=== PATIENT | female | born 1955 | race Caucasian/White ===

== ENCOUNTER → 2022-02-02 09:06 | Outpatient (BNVA) | payer MEDICAID, SELFPAY | PROVIDERS: Visit Provider Nurse Practitioner Psychiatric/Mental Health | DX: Z51.81 Encounter for therapeutic drug level monitoring (principal); F10.20 Alcohol dependence, uncomplicated; R41.9 Unspecified symptoms and signs involving cognitive functions and awareness | CPT/HCPCS: 80305; 99212 ==

== ENCOUNTER 2022-05-16 12:15 | Outpatient (REF) | payer MEDICARE, MEDICAID, SELFPAY ==
--- NOTE | ~2022-05-16 | MM_ITS ---
EXAMINATION: MM SCREENING DIGITAL BREAST TOMOSYNTHESIS, BILATERAL CLINICAL INFORMATION: Screening. Asymptomatic. The lifetime risk of breast cancer based on the Tyrer-Cuzick Model is 5%. COMPARISON: Mammography: 01/08/2020, 11/06/2018, 06/07/2016 TECHNIQUE: Digital breast tomosynthesis is performed in both the craniocaudal and mediolateral oblique views along with computer-aided detection (CAD). Synthesized 2D images are generated from the tomosynthesis. FINDINGS: There are scattered areas of fibroglandular density (ACR BI-RADS breast composition Category b). There are no significant masses, abnormal calcifications, or other abnormalities. There is some fine deodorant artifact overlying skin upper left axilla. MM/MM tomosynthesis screening BI IMPRESSION: No mammographic evidence of malignancy. ASSESSMENT: BI-RADS 2: Benign RECOMMENDATION: Routine annual mammography screening. This patient's information was entered into a reminder system with a target due date for their next mammogram.
== END 2022-05-16 12:16 | disposition home or self-care (01) ==
LOC: HO.MAMMO 12:15
PROVIDERS: PCP Student in an Organized Health Care Education/Training Program; Visit Provider Emergency Medicine
DX: Z12.31 Encounter for screening mammogram for malignant neoplasm of breast (principal)
CPT/HCPCS: 77063; 77067

== ENCOUNTER → 2023-06-26 13:45 | Outpatient (BNV) | payer MEDICARE, MEDICAID, SELFPAY | PROVIDERS: PCP Student in an Organized Health Care Education/Training Program; Visit Provider Radiology Diagnostic Radiology | DX: Z12.31 Encounter for screening mammogram for malignant neoplasm of breast (principal) | CPT/HCPCS: 77063; 77067 ==

== ENCOUNTER 2023-06-26 13:47 | Outpatient (REF) | payer MEDICARE, MEDICAID, SELFPAY ==
--- NOTE | ~2023-06-26 | MM_ITS ---
EXAMINATION: MM SCREENING DIGITAL BREAST TOMOSYNTHESIS, BILATERAL CLINICAL INFORMATION: Screening. Asymptomatic. The lifetime risk of breast cancer based on the Tyrer-Cuzick Model is 7%. COMPARISON: Mammography: 05/16/2022, and dating back to 2012. TECHNIQUE: Digital breast tomosynthesis is performed in both the craniocaudal and mediolateral oblique views along with computer-aided detection (CAD). Synthesized 2D images are generated from the tomosynthesis. FINDINGS: The breasts are heterogeneously dense, which may obscure small masses (ACR BI-RADS breast composition Category c). Patient appears to have lost weight in the interim from 05/16/2022. Breast parenchyma is increasing in density mildly bilaterally. There are no suspicious masses, suspicious grouped calcifications, or areas of architectural distortion. The parenchymal pattern is stable from prior exams. MM/MM tomosynthesis screening BI IMPRESSION: No mammographic evidence of malignancy. ASSESSMENT: BI-RADS BI-RADS 1 - Negative RECOMMENDATION: Routine annual mammography screening. 1 year F/U This examination should not preclude the clinical evaluation of a suspicious palpable abnormality. This patient's information was entered into a reminder system with a target due date for their next mammogram.
== END 2023-06-26 13:48 | disposition home or self-care (01) ==
LOC: HO.MAMMO 13:47
PROVIDERS: PCP Student in an Organized Health Care Education/Training Program; Visit Provider Student in an Organized Health Care Education/Training Program
DX: Z12.31 Encounter for screening mammogram for malignant neoplasm of breast (principal)
CPT/HCPCS: 77063; 77067

== ENCOUNTER 2023-06-28 10:29 | Outpatient (REF) | payer MEDICARE, MEDICAID, SELFPAY ==
[2023-06-28 15:54] LABS: Anion Gap 15 (12-20); Blood Urea Nitrogen 11 mg/dL (9-16); Calcium 9.5 mg/dL (8.4-10.2); Carbon Dioxide 26 mmol/L (22-29); Chloride 104 mmol/L (96-108); Estimated Glomerular Filt Rate > 60; Glucose Fasting 97 mg/dL (60-99); Potassium 4.3 mmol/L (3.3-5.1); Sodium 141 mmol/L (135-145)
[2023-06-28 16:57] LABS: Thyroid Stimulating Hormone 1.77 uIU/mL (0.32-4.0)
== END 2023-06-28 10:30 | disposition home or self-care (01) ==
LOC: HO.CHCLDS 10:29
PROVIDERS: Visit Provider Student in an Organized Health Care Education/Training Program
DX: F10.20 Alcohol dependence, uncomplicated (principal); E03.9 Hypothyroidism, unspecified
CPT/HCPCS: 36415; 80048; 84443

== ENCOUNTER 2023-12-07 10:01 | Outpatient (REF) | payer MEDICARE, MEDICAID, SELFPAY ==
[2023-12-07 15:21] LABS: Anion Gap 14 (12-20); Blood Urea Nitrogen 9 mg/dL (9-16); Calcium 9.2 mg/dL (8.4-10.2); Carbon Dioxide 26 mmol/L (22-29); Chloride 104 mmol/L (96-108); Estimated Glomerular Filt Rate > 60; Glucose Random 74 mg/dL (60-115); Potassium 3.6 mmol/L (3.3-5.1); Sodium 140 mmol/L (135-145)
[2023-12-07 15:37] LABS: Thyroid Stimulating Hormone 0.94 uIU/mL (0.32-4.0)
== END 2023-12-07 10:02 | disposition home or self-care (01) ==
LOC: HO.CHCLDS 10:01
PROVIDERS: Visit Provider Student in an Organized Health Care Education/Training Program
DX: E03.9 Hypothyroidism, unspecified (principal); E87.1 Hypo-osmolality and hyponatremia
CPT/HCPCS: 36415; 80048; 84443

== ENCOUNTER 2024-09-08 12:20 | Outpatient (REF) | payer MEDICARE, MEDICAID, SELFPAY ==
[2024-09-08 13:23] LABS: MANUAL DIFF FLAG NO
[2024-09-08 13:36] LABS: Basophils Absolute Auto 0.1 X10*3/uL (0.0-0.2); Basophils Percent Auto 0.9 % (0-2); Eosinophils Absolute Auto 0.1 X10*3/uL (0.0-0.4); Hemoglobin 11.1 g/dl (12.0-16.0); Imm Gran Abs Auto 0.02 X10*3/uL (0.00-0.03); Imm Gran Pct Auto 0.3 % (0.0-0.4); Lymphocytes Absolute Auto 3.1 X10*3/uL (1.2-4.9); Lymphocytes Percent Auto 39.1 % (20-40); Mean Corpuscular HGB Conc 31.7 g/dl (31.0-35.0); Mean Corpuscular Volume 91.4 fL (80.0-98.0); Mean Platelet Volume 10.3 fL (9.4-12.3); Monocytes Absolute Auto 0.5 X10*3/uL (0.1-1.2); Monocytes Percent Auto 6.1 % (2-11); Neutrophils Absolute Auto 4.2 x10*3/uL (2.0-8.3); Neutrophils Percent Auto 52.6 % (45-73); Platelet Count 343 X10*3/uL (160-400); Red Blood Count 3.83 X10*6/uL (4.20-5.50); Red Cell Distribution Width 12.8 % (11.0-16.0)
[2024-09-08 14:33] LABS: Alanine Aminotransferase 11 U/L (0-31); Albumin Level 4.2 g/dL (3.5-5.0); Alkaline Phosphatase 64 U/L (39-117); Anion Gap 10 (12-20); Aspartate Amino Transferase 25 U/L (5-31); Bilirubin Total 0.7 mg/dL (0.0-1.0); Blood Urea Nitrogen 16 mg/dL (9-16); Calcium 9.2 mg/dL (8.4-10.2); Carbon Dioxide 28 mmol/L (22-29); Chloride 108 mmol/L (96-108); Cholesterol 196 mg/dL (<200); Estimated Glomerular Filt Rate > 60; Glucose Random 90 mg/dL (60-115); HDL Cholesterol 60 mg/dL (>40); LDL Cholesterol Calculated 123 mg/dL (<100); Potassium 3.9 mmol/L (3.3-5.1); Sodium 142 mmol/L (135-145); Total Protein 6.8 g/dL (6.5-8.0); Triglycerides 65 mg/dL (<150)
[2024-09-08 14:48] LABS: Thyroid Stimulating Hormone 1.74 uIU/mL (0.32-4.0)
== END 2024-09-08 12:21 | disposition home or self-care (01) ==
LOC: HO.HHCL 12:20
PROVIDERS: Visit Provider Registered Nurse
DX: R19.7 Diarrhea, unspecified (principal); E03.9 Hypothyroidism, unspecified; F10.20 Alcohol dependence, uncomplicated
CPT/HCPCS: 36415; 80053; 80061; 84443; 85025

== ENCOUNTER 2024-12-02 13:37 | Outpatient (REF) | payer MEDICARE, MEDICAID, SELFPAY ==
--- NOTE | ~2024-12-02 | MM_ITS ---
EXAMINATION: MM SCREENING DIGITAL BREAST TOMOSYNTHESIS, BILATERAL CLINICAL INFORMATION: Screening. Asymptomatic. COMPARISON: Mammography: Comparison is made with available priors TECHNIQUE: Digital breast mammography with tomosynthesis is performed in both the craniocaudal and mediolateral oblique views along with computer-aided detection (CAD). FINDINGS: The breasts are heterogeneously dense, which may obscure small masses (ACR BI-RADS breast composition Category c). There are no significant masses, abnormal calcifications, or other abnormalities. MM/MM tomosynthesis screening BI IMPRESSION: No mammographic evidence of malignancy. ASSESSMENT: BI-RADS BI-RADS 1 - Negative RECOMMENDATION: Routine annual mammography screening. 1 year F/U This examination should not preclude the clinical evaluation of a suspicious palpable abnormality. This patient's information was entered into a reminder system with a target due date for their next mammogram. Electronically signed by: Jacy Howard DO 12/10/2024 01:28 PM VICK[facility]
--- NOTE | ~2024-12-02 | MM_ITS ---
EXAMINATION: Dual-Energy X-ray Absorptiometry - Bone Density Study HISTORY: Estrogen deficiency TECHNIQUE: Digital Fuel Dual energy absorptiometry (DEXA) of the lumbar spine, total left hip, and femoral neck was performed. COMPARISON: Comparison is made with the prior examination dated 12/12/2018. FINDINGS: The bone mineral density of the lumbar spine is 1.599 with a T-score of 3.5, and a Z-score of 5.8. This represents a BMD change of -1.1% compared to the prior exam. This is not statistically significant. The bone mineral density of the left total hip is 0.779 with a T-score of -1.8, and a Z-score of 0.0. This represents BMD change of -7.2% compared to the prior exam. This is statistically significant. The bone mineral density of the left femoral neck is 0.835 with a T-score of -1.5, and a Z-score of 0.5. This represents BMD change of 3.5% compared to the prior exam. FRACTURE RISK: The FRAX index suggests a ten year probability of major osteoporotic fracture of 8.0%, and of hip fracture 1.1%. MM/XR DEXA axial skeleton IMPRESSION: Based on bone mineral density, and according to World Health Organization (WHO) criteria, the diagnosis is consistent with osteopenia. All bone density values are in grams per centimeter squared. At this facility, the least significant change in BMD with 95% confidence is 0.022 at the lumbar spine, 0.027 at the hip, and 0.023 at the distal 1/3 radius. Electronically signed by: Lazarus Romo MD 12/03/2024 09:57 AM EST
--- OUTSIDE RECORDS SUMMARY | 2024-12-02 15:55 | XMS_ITS | Clinical Summary ---
Author Organization Unknown Care Team Providers Care Paperboard Machine Operator Name Role Phone AIYANA YU, MELINA Unavailable Unavailable CARMEN CARDOSO, GEE Unavailable Unavailable Payers Payer Name Policy Type Policy Number Effective Date Expira tion Date MEDICAID [facility] [id number] MEDICARE - NGS [place]/DC - PD [id number] Problems Condition Name Condition Details Condition Category Status Onset Date Resolution Date Last Treatment Date Treating Clinician Comments ALCOHOL DEPENDENCE, UNCOMPLICATE D Active 01-17 00:00: 00 Allergies, Adverse Reactions, Alerts Allergy Name Allergy Type Status Severity Reaction(s) Onset Date Inactive Date Treating Clinician Comments NKA Propensity to adverse reactions Active 2023-01 11:52:5 8 Medications Ordered Medication Name Filled Medication Name Start Date Stop Date Current Medication? Ordering Clinician Indication Dosage Frequency Signature (SIG) Comments Components folic acid 1 mg tablet 02-02 00:00: 00 07-14 23:59 :00 No [id number] 1 tablet DAILY 1 tablet DAILY (route: oral) Med Classific ation: Electroly te Balance-N utritiona l Products levetiracet am 500 mg tablet 02-02 00:00: 00 07-14 23:59 :00 No [id number] 1 tablet EVERY 12 HOURS 1 tablet EVERY 12 HOURS (route: oral) Med Classific ation: Central Nervous System Agents magnesium oxide 400 mg (241.3 mg magnesium) tablet 02-02 00:00: 00 07-14 23:59 :00 No [id number] 1 tablet 2 TIMES DAILY 1 tablet 2 TIMES DAILY (route: oral) Med Classific ation: Electroly te Balance-N utritiona l Products Multivitami n 50 Plus tablet 02-02 00:00: 00 07-14 23:59 :00 No [id number] 1 tablet DAILY 1 tablet DAILY (route: oral) Med Classific ation: Electroly te Balance-N utritiona l Products pantoprazol e 40 mg tablet,eloisa yed release 02-02 00:00: 00 07-14 23:59 :00 No [id number] 1 tablet DAILY 1 tablet DAILY (route: oral) Med Classific ation: Gastroint estinal Therapy Agents pyridoxine (vitamin B6) 50 mg tablet 02-02 00:00: 00 07-14 23:59 :00 No [id number] 1 tablet DAILY 1 tablet DAILY (route: oral) Med Classific ation: Electroly te Balance-N utritiona l Products thiamine HCl (vitamin B1) 100 mg tablet 02-02 00:00: 00 07-14 23:59 :00 No [id number] 1 tablet DAILY 1 tablet DAILY (route: oral) Med Classific ation: Electroly te Balance-N utritiona l Products Vitamin D3 25 mcg (1,000 unit) tablet 02-02 00:00: 00 07-14 23:59 :00 No [id number] 1 tablet DAILY 1 tablet DAILY (route: oral) Med Classific ation: Electroly te Balance-N utritiona l Products ESTRACE VAGINAL 1-10 00:00: 00 12-28 00:00 :00 No 0.01 % (0.1 mg/gram ) 0.01 % (0.1 mg/gram) (route: ) Med Classific ation: VAGINAL PRODUCTS Plan of Treatment Planned Activity Planned Date Details Comments Future Scheduled Test SKILLED NU RSE TO EVALUATE PATIENT, IDENTIFY PRIMARY AND CO-MORBID CONDITIONS CODED PER CODING GUIDELINES, AND DEVELOP PATIENT SPECIFIC PLAN OF CARE THAT INCLUDES PATIENT GOAL FOR HOME HEALTH. CLINICAL SUMMARY (SOC) START OF CARE VISIT FOR 67 YEAR OLD SINGLE FEMALE WITH PRISON ADDICTION TO ALCOHOL. SHE HAS BEEN FREQUENTLY HOSPITALIZED WITH AMS AND SHE PRESENTS SLOW SPEAKING. SHE WALKS WITH A STOOP, SAYS SHE HAS NO PAIN ANYWHERE BUT WALKS LIKE A 89 YEAR OLD. SHE IS VERY SLIM, PALE, WEAK. SHE REPORTS STAYING AT BOYFRIEND [employer] FREQU[facility] AND SAYS ALL HER MEDS ARE KEPT AND DOSED BY HIM. SHE REPORTS ATTENDING OCCASIONAL AA MEETINGS, BUT SUSPECT SHE DOES SO TO APPEASE HER BOYFRIEND. SHE DID REMARK SHE HAS NO BLOOD FAMILY LEFT. SHE OWNS HER HOME, (IT WAS HER PARENTS HOME), AND TROUBLES ARE ARISING - GARAGE DOOR WONT SHUT, WASHER DOESNT WORK, ETC. - AN AGING PROPERTY. SHE SHARES THERE ARE A LOT OF MEMORIES IN HER HOUSE AND PLANS TO REHAB IT. SHE WAS HOSPITALIZ[place] [facility] FOR AMS DUE TO ETOH. THIS RN NOT SURE IF PATIENT THINKS SHE HAS A PROBLEM, WHICH MAY DELAY RECOVERY. SN 1W1, 3W4, 2W4, 1W1 FOR ASSESSMENT OF MOOD, COPING, MED PREFILL, SOBRIETY, MED COMPLIANCE. [code = SKILLED NURSE TO EVALUATE PATIENT, IDENTIFY PRIMARY AND CO-MORBID CONDITIONS CODED PER CODING GUIDELINES, AND DEVELOP PATIENT SPECIFIC PLAN OF CARE THAT INCLUDES PATIENT GOAL FOR HOME HEALTH. CLINICAL SUMMARY (SOC) START OF CARE VISIT FOR 67 YEAR OLD SINGLE FEMALE WITH BOOK SOLICITOR ADDICTION TO ALCOHOL. SHE HAS BEEN FREQUENTLY HOSPITALIZED WITH AMS AND SHE PRESENTS SLOW SPEAKING. SHE WALKS WITH A STOOP, SAYS SHE HAS NO PAIN ANYWHERE BUT WALKS LIKE A 89 YEAR OLD. SHE IS VERY SLIM, PALE, WEAK. SHE REPORTS STAYING AT [facility] AND SAYS ALL HER MEDS ARE KEPT AND DOSED BY HIM. SHE REPORTS ATTENDING OCCASIONAL AA MEETINGS, BUT SUSPECT SHE DOES SO TO APPEASE HER BOYFRIEND. SHE DID REMARK SHE HAS NO BLOOD FAMILY LEFT. SHE OWNS HER HOME, (IT WAS HER PARENTS HOME), AND TROUBLES ARE ARISING - GARAGE DOOR WONT SHUT, WASHER DOESNT WORK, ETC. - AN AGING PROPERTY. SHE SHARES THERE ARE A LOT OF MEMORIES IN HER HOUSE AND PLANS TO REHAB IT. SHE WAS HOSPITALIZED [place] [facility] [place]01 FOR AMS DUE TO ETOH. THIS RN NOT SURE IF PATIENT THINKS SHE HAS A PROBLEM, WHICH MAY DELAY RECOVERY. SN 1W1, 3W4, 2W4, 1W1 FOR ASSESSMENT OF MOOD, COPING, MED PREFILL, SOBRIETY, MED COMPLIANCE. ] Future Scheduled Test SKILLED NU RSE TO O/A OF PATIENTS MENTAL/BEHAVIORAL STATUS, ASSESS VITAL SIGNS MONTHLY OR NEEDED, ALLOW 2 PRNS FOR MEDICATION MANAGEMENT. [code = SKILLED NURSE TO O/A OF PATIENTS MENTAL/BEHAVIORAL STATUS, ASSESS VITAL SIGNS MONTHLY OR NEEDED, ALLOW 2 PRNS FOR MEDICATION MANAGEMENT.] Future Scheduled Test SKILLED NU RSE TO PRE-POUR MEDICATION PER MEDICATION LIST WEEKLY. [code = SKILLED NURSE TO PRE-POUR MEDICATION PER MEDICATION LIST WEEKLY.] Future Scheduled Test SKILLED NU RSE FOR O/A AND SKILLED TEACHING RELATED TO MANAGEMENT OF DEPRESSIVE SYMPTOMS AND/OR DEPRESSION SN TO REPORT SIGNIFICANT CHANGE IN DEPRESSIVE SYMPTOMS TO CLINICAL PROVIDER FOR EARLY INTERVENTION. [code = SKILLED NURSE FOR O/A AND SKILLED TEACHING RELATED TO MANAGEMENT OF DEPRESSIVE SYMPTOMS AND/OR DEPRESSION SN TO REPORT SIGNIFICANT CHANGE IN DEPRESSIVE SYMPTOMS TO CLINICAL PROVIDER FOR EARLY INTERVENTION.] Future Scheduled Test SKILLED NU RSE MAY PICKUP AND TRANSPORT MEDICATIONS [code = SKILLED NURSE MAY PICKUP AND TRANSPORT MEDICATIONS] Future Scheduled Test SKILLED NU RSE FOR O/A OF CLIENT'S KNOWLEDGE OF DISEASE PROCESS AND MANAGEMENT. MAY TEACH DISEASE MANAGEMENT TECHNIQUES DESIGNED TO INCREASE CLIENT'S FUNCTIONAL STATUS. [code = SKILLED NURSE FOR O/A OF CLIENT'S KNOWLEDGE OF DISEASE PROCESS AND MANAGEMENT. MAY TEACH DISEASE MANAGEMENT TECHNIQUES DESIGNED TO INCREASE CLIENT'S FUNCTIONAL STATUS.] Future Scheduled Test SKILLED NU RSE FOR O/A OF CLIENT'S AVAILABLE SUPPORT SYSTEMS. SN TO ASSIST CLIENT IN IDENTIFYING AND ACCESSING SUPPORT SYSTEMS FOR ASSISTANCES [code = SKILLED NURSE FOR O/A OF CLIENT'S AVAILABLE SUPPORT SYSTEMS. SN TO ASSIST CLIENT IN IDENTIFYING AND ACCESSING SUPPORT SYSTEMS FOR ASSISTANCES] Future Scheduled Test SKILLED NU RSE FOR O/A OF GENERAL HEALTH STATUS OF PAIN, CARDIAC, RESPIRATORY, GASTROINTESTINAL, GENITOURINARY, SKIN, NEUROLOGIC, ENDOCRINE SYSTEMS TO IDENTIFY CHANGES ASSOCIATED WITH EXACERBATION FOR EARLY INTERVENTION OF COMPLICATIONS WEEKLY AND PRN [code = SKILLED NURSE FOR O/A OF GENERAL HEALTH STATUS OF PAIN, CARDIAC, RESPIRATORY, GASTROINTESTINAL, GENITOURINARY, SKIN, NEUROLOGIC, ENDOCRINE SYSTEMS TO IDENTIFY CHANGES ASSOCIATED WITH EXACERBATION FOR EARLY INTERVENTION OF COMPLICATIONS WEEKLY AND PRN] Future Scheduled Test SKILLED NU RSE TO REVIEW PATIENT MEDICATIONS. INSTRUCT PATIENT/CAREGIVER ON MONITORING OF EFFECTIVENESS, ADVERSE DRUG REACTIONS, SIDE EFFECTS OF ALL MEDICATIONS (PRESCRIPTION/-OTC), AND HOW AND WHEN TO REPORT PROBLEMS. [code = SKILLED NURSE TO REVIEW PATIENT MEDICATIONS. INSTRUCT PATIENT/CAREGIVER ON MONITORING OF EFFECTIVENESS, ADVERSE DRUG REACTIONS, SIDE EFFECTS OF ALL MEDICATIONS (PRESCRIPTION/-OTC), AND HOW AND WHEN TO REPORT PROBLEMS. ] Future Scheduled Test SKILLED NU RSE FOR OBSERVATION AND ASSESSMENT OF PATIENTS PAIN LEVEL AND EFFECTIVENESS OF PAIN MANAGEMENT REGIMEN. SKILLED NURSE TO INSTRUCT PATIENT/CAREGIVER REGARDING PHARMACOLOGIC AND NON-PHARMACOLOGIC PAIN CONTROL MEASURES. SKILLED NURSE TO REPORT TO PHYSICIAN IF PAIN IS UNCONTROLLED WITH CURRENT PAIN MANAGEMENT REGIMEN. [code = SKILLED NURSE FOR OBSERVATION AND ASSESSMENT OF PATIENTS PAIN LEVEL AND EFFECTIVENESS OF PAIN MANAGEMENT REGIMEN. SKILLED NURSE TO INSTRUCT PATIENT/CAREGIVER REGARDING PHARMACOLOGIC AND NON-PHARMACOLOGIC PAIN CONTROL MEASURES. SKILLED NURSE TO REPORT TO PHYSICIAN IF PAIN IS UNCONTROLLED WITH CURRENT PAIN MANAGEMENT REGIMEN.] Future Scheduled Test SKILLED NU RSE TO PROVIDE INSTRUCTION ON FALL PREVENTION MEASURES. [code = SKILLED NURSE TO PROVIDE INSTRUCTION ON FALL PREVENTION MEASURES.] Future Scheduled Test PATIENT MA Y HAVE ONE SET OF EMERGENCY MEDICATION NOT TO BE PRE-POURED ANY SOONER THAN 24 HOURS BEFORE SEVERE INCLEMENT WEATHER AND FOLLOWING SKILLED NURSE EVALUATION OF PATIENT SAFETY. [code = PATIENT MAY HAVE ONE SET OF EMERGENCY MEDICATION NOT TO BE PRE-POURED ANY SOONER THAN 24 HOURS BEFORE SEVERE INCLEMENT WEATHER AND FOLLOWING SKILLED NURSE EVALUATION OF PATIENT SAFETY.] Goal Patient Goal - TO KEEP EVERYONE OFF MY BACK Goal Provider Goal - A PLAN OF CARE WILL BE ESTABLISHED THAT MEETS PATIENT'S RESIDENTIAL NEEDS AND INCLUDES PATIENT GOAL FOR HOME HEALTH. Goal Provider Goal - ALTERED MENTAL/BEHAVIORAL STATUS WILL BE IDENTIFIED PROMPTLY AND INTERVENTION INITIATED QUICKLY TO MINIMIZE ASSOCIATED RISKS Goal Provider Goal - PATIENT WILL COMPLY WITH MEDICATION WHEN SKILLED NURSE PRE-POURS MEDICATION. Goal Provider Goal - PATIENT WILL REMAIN SAFE WITHOUT DECOMPENSATION IN DEPRESSIVE CONDITION, WHILE MAINTAINING OPTIMAL LEVEL OF MENTAL HEALTH AND WELL BEING. Goal Provider Goal - Goal Provider Goal - PATIENT WILL DEMONSTRATE IMPROVED MANAGEMENT SKILLS IN DEALING WITH CURRENT DISEASE PROCESS BY THE END OF THE CERTIFICATION PERIOD. Goal Provider Goal - PATIENT WILL VERBALIZE AND ACKNOWLEDGE AVAILABLE SUPPORT SYSTEMS AND DEMONSTRATE WILLINGNESS TO UTILIZE SUPPORT ASSISTANCE WITHIN THIS CERFITICATION PERIOD. Goal Provider Goal - CHANGE IN GENERAL HEALTH STATUS WILL BE IDENTIFIED AND REPORTED TO PHYSICIAN FOR PROMPT INTERVENTION TO MINIMIZE ASSOCIATED RISKS THROUGHOUT CERTIFICATION PERIOD. Goal Provider Goal - PATIENT/CAREGIVER WILL VERBALIZE UNDERSTANDING OF EDUCATION PROVIDED ON MEDICATIONS BY THE END OF THE CERTIFICATION PERIOD. Goal Provider Goal - INCREASED PAIN OR INEFFECTIVE PAIN CONTROL MEASURES WILL BE IDENTIFIED AND PROMPTLY REPORTED TO PHYSICIAN THROUGHOUT THE CERTIFICATION PERIOD. Goal Provider Goal - PATIENT/CAREGIVER DEMONSTRATES UNDERSTANDING OF FALL PREVENTION MEASURES BY THE END OF THE CERTIFICATION PERIOD. Reason for Visit INDEPENDENT IN THE COMMUNITY Encounters Start Date/Time End Date/Time Encounter Type Admission Type Attending [facility] Care Department Encounter ID Discharge Date Discharge Status Discharge Condition Discharge Reason Percent Goals Met 2023-02-02 00:00:00 2023-02-27 00:00:00 Outpatient READMISSIO N ROSS, GEE [facility] [id number] 1887-04-11 00:00:00 DISCHARGE TO HOME OR SELF CARE INDEPENDEN T IN THE COMMUNITY NON COMPLIANT WITH PLAN OF TREATMENT 33.33
== END 2024-12-02 13:38 | disposition home or self-care (01) ==
LOC: HO.MAMMO 13:37
PROVIDERS: PCP Family Medicine; Visit Provider Registered Nurse
DX: Z12.31 Encounter for screening mammogram for malignant neoplasm of breast (principal); Z78.0 Asymptomatic menopausal state; Z91.89 Other specified personal risk factors, not elsewhere classified
CPT/HCPCS: 77063; 77067; 77080

== ENCOUNTER → 2024-12-02 14:00 | Outpatient (BNV) | payer MEDICARE, MEDICAID, SELFPAY | PROVIDERS: PCP Family Medicine; Visit Provider Radiology Diagnostic Radiology | DX: Z12.31 Encounter for screening mammogram for malignant neoplasm of breast (principal) | CPT/HCPCS: 77063; 77067; 77080 ==

== ENCOUNTER 2025-02-03 13:32 | Outpatient (AMB) | payer MEDICARE, MEDICAID, SELFPAY ==
--- NOTE | 2025-02-03 14:16 | AM.OFFWIN_ITS ---
Intake Vital Signs 02/03/25 14:17 Height 5 ft 2 in Weight 108 lb 4 oz BMI 19.8 BP 118/66 Blood Pressure Location Lt brachial Position Sitting Pulse 84 Pulse Source Pulse Oximeter Temp 98.0 F Temp Source Oral Pulse Oximetry (%) 97 Oxygen Delivery Method Room Air Intake Visit Reasons: EP pain on LT tigh Intake Note: Pt presents to the office today for c/o left thigh pain x1.5 weeks. Pt denies any injury to her leg but states she does a lot of walking. Patient Tobacco Use Status: Never used Tobacco Allergies No Known Allergies [No Known Allergies*] Allergy (Verified 02/03/25 14:19) HPI HPI Comments History of Present Illness Details This is a 69-year-old female with a past medical history of insomnia presenting for evaluation of left distal thigh pain that she has had for the past 2 weeks. Patient denies any injury or trauma preceding the onset of her symptoms. Patient also denies taking any new medications. She has been taking Advil and Tylenol intermittently without relief of her symptoms. Patient states that her leg will occasionally be more uncomfortable with ambulation. [facility] Social History Patient Tobacco Use Status: Never used Tobacco Review of Systems Const All systems reviewed & are unremarkable except as noted in HPI and below Eyes Reports no additional complaints ENT Reports no additional complaints Card Reports no additional complaints Resp Reports no additional complaints GI Reports no additional complaints Reports no additional complaints Musc Reports other (left thigh pain) Skin/Breast Details: No skin changes reported Reports system reviewed and no additional complaints, except as documented Neuro Reports no additional complaints Psych Reports no additional complaints Endo Reports no additional complaints Wesley/Lymph Reports no additional complaints Aller/Immun Reports no additional complaints Physical Exam Vital Signs: Last Vital Signs Temp 98.0 F 02/03/25 14:17 Pulse 84 02/03/25 14:17 BP 118/66 02/03/25 14:17 Pulse Ox 97 02/03/25 14:17 Oxygen Delivery Method Room Air 02/03/25 14:17 BMI result Body Mass Index 19.8 Const General: cooperative, healthy appearing, comfortable and no acute distress Nutritional Appearance: average body habitus Orientation/consciousness: patient oriented x3 Limitations: no limitations Skin Other: No erythema, rashes or other cutaneous findings noted on the left lower extremity Neuro General: patient oriented x3 Extrem Left lower extremity: normal to inspection, full ROM, no joint enlargement and hip/thigh (pain to palpation distal lateral left thigh, ROM left knee intact) Details: normal to inspection, tenderness and normal ROM; no swelling, no lacerations, no ecchymosis, no crepitus, no foreign bodies and no unusual warmth; no cyanosis and no edema Psych Appearance: grossly normal Mental Status: mental status grossly normal Insight: Good insight present (Psych) Judgement: Good judgement present (Psych) Assessment & Plan Assessment & Plan (1) Left thigh pain: Comment: There is no evidence of an acute cellulitis, no crepitus, no evidence of a retained foreign body and examination is consistent with muscular pain. Code(s): M79.652 - Pain in left thigh Plan: Naprosyn b.i.d. times 7-10 days. Patient will follow up with her primary care provider in 2 weeks if her symptoms persist. Medications: New naproxen (Naprosyn) 500 mg PO BID 20 tabs 0RF Coding Level of Care Code Est Pt Level 3 (77955) Diagnoses Left thigh pain M79.652 Time Spent (min) 20
[2025-02-03 14:17] VITALS: BP 118/66; PULSE 84; TEMP 36.7; O2SAT 97; BMI 19.8
--- OUTSIDE RECORDS SUMMARY | 2025-02-03 15:59 | XMS_ITS | Encounter Summary ---
Author Organization [employer] Address [address] [place] [address] Care Team Providers Care Mate Fourth Name Role Phone Kita Figueroa MD Primary Care Provider [phone] Kal Tong MD Unavailable [phone] [facility] Primary Care Provider [phone] Melly Heard MD Primary Care Provider [phone] Reason for Visit * Reason Onset Date Comments Call Back Request 11/13/2023 Encounter Details Date Type Department Care Team ([facility] st Contact Info) Description 11/13/2023 Telephone [facility] P[facility]S [address] [place], [place] [id number] Kita Figueroa MD [address] [place] [address] Call Back Request Social History Tobacco Use Types Packs/Day Years Used Date Smoking Tobacco: Never Smokeless Tobacco: Never Alcohol Use Standard Drinks/Week Comments Yes 0 (1 standard drink = 0.6 oz pur e alcohol) Alcohol Answer Date Recorded How often do you have a drink containing alcohol ? 4 12/08/2022 How many drinks containing a lcohol do you have on a typical day when you are drinking? 3 12/08/2022 How often do you have six or more drinks on one occasion? 3 12/08/2022 Housing Stability Answer Date Recorded What is your housing situation today? I have erendira rider 09/17/[address] you li ve. Do you have problems with any of the following? None of the above 09/17/2023 Food Insecurity Answer Date Recorded Within the past 12 months, y ou worried that your food would run out before you got money to buy more: Never True 09/17/2023 Within the past 12 months,th e food you bought just didn't last and you didn't have enough money to get more: Never True Transportation Answer Date Recorded In the past 12 months, has l ack of transportation kept you from medical appts, meetings, work or from getting things needed for daily living? No 09/17/2023 Utilities Answer Date Recorded In the past 12 months, has t he [employer], gas, oil or water [employer] threatened to shut off services in your home? No 09/17/2023 Comments Unknown Sex and Gender Information Value Date Recorded Sex Assigned at Female 09/18/2022 10:17 AM EDT Legal Sex Female 10:17 AM EDT Gender Identity Female 09/18/2022 10:17 AM EDT Sexual Orientation Straight 09/18/2022 10 :17 AM EDT documented as of this encounter Miscellaneous Notes * Telephone Encounter - Leonela Bustamante RN - 11/14/2023 4:29 PM EST Placed call to Evie at [facility] regarding message below. Evie informed of PCP concerns. [facility] will make a note of this and f/u as needed. * Telephone Encounter - Kita Figueroa MD - 11/13/2023 9:23 PM EST Pt is a alcoholic and is non complaint with meds and all medical advices * Telephone Encounter - Juan Salcedo - 11/13/2023 3:40 PM EST Tc from Evie working with [facility] calling [facility] about any medical concerns pcp may have and if pt is medically compliant.Please contact Evie at [phone] ebp [phone]. documented in this encounter Plan of Treatment Not on file documented as of this encounter Visit Diagnoses Not on filedocumented in this encounter Care Teams Mate Fourth Relationship Specialty Start Date End Date Kita Fgiueroa MD [address] [place] [address] PCP - General Family Medicine 11/04/12 09/07/24 [facility] [address] [place] [address] PCP - General Family Medicine 09/08/24 09/08/24 Melly Heard MD [address] [place] [address] PCP - General Family Medicine 09/09/24 Kal Tong MD [address] [id number] Nephrology 06/12/22 documented as of this encounter
--- OUTSIDE RECORDS SUMMARY | 2025-02-03 15:59 | XMS_ITS | Encounter Summary ---
Author Organization [employer] Address [address] [facility] 7t [place] [address] Care Team Providers Care Traverse Rod Assembler Name Role Phone Kita Figueroa MD Primary Care Provider [phone] Kal Tong MD Unavailable [phone] [facility] Primary Care Provider [phone] Melly Heard MD Primary Care Provider [phone] Encounter Details Date Type Department Care Team (Late st Contact Info) Description 07/11/2024 Orders Only [facility] [address] [place] [address] Provider, MD Vanessa Social History Tobacco Use Types Packs/Day Years [...] the past 12 months, has t he electric, gas, oil or water company threatened to shut off services in your home? No 09/17/2023 Comments Unknown Sex and Gender Information Value Date Recorded Sex Assigned at Female 09/18/2022 10:17 AM EDT Legal Sex Female 10:17 AM EDT Gender Identity Female 09/18/2022 10:17 AM EDT Sexual Orientation Straight 09/18/2022 10 :17 AM EDT documented as of this encounter Plan of Treatment Not on file documented as of this encounter Procedures Procedure Name Priority Date/Time Associated Diagnosis Comments CT HEAD/BRAIN VENOGRAM Routine 07/11/2024 11:11 AM EDT XR CHEST PORTABLE Routine 07/10/2024 11:28 AM EDT documented in this encounter Results * CT HEAD/BRAIN VENOGRAM (07/11/2024 11:11 AM EDT) Anatomical Region Laterality Modality Computed Tomogra phy us Historical Provider MD ROJAS CT PROCEDURES Final R esult * XR Chest Portable (07/10/2024 11:28 AM EDT) Anatomical Region Laterality Modality Radiographic Kelly ging us Historical Provider IMYelitza XR PROCEDURES Final R esult documented in this encounter Visit Diagnoses Not on filedocumented in this encounter Care Teams Traverse Rod Assembler Relationship Specialty Start Date End Date Kita Figueroa MD [address] [place] [address] PCP - General Family Medicine 11/04/12 09/07/24 RenoVaishali FNP [address] [place] [address] PCP - General Family Medicine 09/08/24 09/08/24 Melly Heard MD [address] [place] [address] PCP - General Family Medicine 09/09/24 Kal Tong MD [address] [facility] [address] [place] [address] Nephrology 06/12/22 documented as of this encounter
--- OUTSIDE RECORDS SUMMARY | 2025-02-03 15:59 | XMS_ITS | Encounter Summary ---
Author Organization [employer] Address [address] [facility] 7t [place] [address] Care Team Providers Care Order Takers Supervisor Name Role Phone Kal Tong MD Unavailable [phone] Melly Heard MD Primary Care Provider [phone] Reason for Visit * Reason Comments Med Refill Encounter Details Date Type Department Care Team ([facility] Contact Info) Description 12/03/2024 Refill [facility] [address] [place] [address] Tima Mckeon MD [address] [place] [address] Social History Tobacco Use Types Packs/Day Years [...] more drinks on one occasion? 3 12/08/2022 Depression Answer Date Recorded Patient Health Questionnaire-9 Score 4 11/26/2024 Patient Health Questionnaire-9 Score 4 11/26/2024 Last PHQ-9: Questionnaire Data Not on file 0 11/26/2024 Housing Stability Answer Date Recorded What is your housing situation today? I have erendira rider 08/13/[address] you li ve. Do you have problems with any of the following? None of the above 08/13/2024 Food Insecurity Answer Date Recorded Within the past 12 months, y ou worried that your food would run out before you got money to buy more: Never True 08/13/2024 Within the past 12 months,th e food you bought just didn't last and you didn't have enough money to get more: Never True Transportation Answer Date Recorded In the past 12 months, has l ack of transportation kept you from medical appts, meetings, work or from getting things needed for daily living? No 08/13/2024 Utilities Answer Date Recorded In the past 12 months, has t he electric, gas, oil or water company threatened to shut off services in your home? No 08/13/2024 Depression Answer Date Recorded Patient Health Questionnaire-2 Score 1 11/26/2024 Internet Access Answer Date Recorded Internet Access Q1 Yes 08/13/2024 Internet Access Q2 Not on file 08/13/2024 Comments Unknown Sex and Gender Information Value Date Recorded Sex Assigned at Female 09/18/2022 10:17 AM EDT Legal Sex Female 10:17 AM EDT Gender Identity Female 09/18/2022 10:17 AM EDT Sexual Orientation Straight 09/18/2022 10 :17 AM EDT documented as of this encounter Plan of Treatment Not on file documented as of this encounter Visit Diagnoses Not on filedocumented in this encounter Additional Health Concerns Assessment Noted Time PHQ-9 Depression Total Score: 4 11/26/19 25 11:10 AM EST documented as of this encounter Care Teams Order Takers Supervisor Relationship Specialty Start Date End Date Melly Heard MD [address] [place] [address] PCP - General Family Medicine 09/09/24 Kal Tong MD 100 [facility] [address] [place] [address] Nephrology 06/12/22 documented as of this encounter
--- OUTSIDE RECORDS SUMMARY | 2025-02-03 15:59 | XMS_ITS | Encounter Summary ---
Author Organization [employer] Address [address] [facility] 7t [place] [address] Care Team Providers Care Healthcare Liaison Name Role Phone Kita Figueroa MD Primary Care Provider [phone] Kal Tong MD Unavailable [phone] [facility] Primary Care Provider [phone] Melly Heard MD Primary Care Provider [phone] Reason for Visit * Reason Comments Med Refill Encounter Details Date Type Department Care Team (Late st Contact Info) Description 11/15/2023 Refill [facility] [address] [place] [address] Kita Figueroa MD [address] [place], [place] [id number] Uncomplicated alcohol dependence (CMS/HCC) Social History Tobacco Use Types Packs/Day Years [...] encounter Miscellaneous Notes * Telephone Encounter - Telly Arnold RN - 11/16/2023 10:55 AM EST Pt is out of her thyroid medication. Last TSH on 06/28/23 was 1.77. Please see pended medication refill request below. Thanks. documented in this encounter Plan of Treatment Not on file documented as of this encounter Visit Diagnoses Diagnosis Uncomplicated alcohol dependence (CMS/HCC) documented in this encounter Care Teams Healthcare Liaison Relationship Specialty Start Date End Date Kita Figueroa MD [address] [place] [address] PCP - General Family Medicine 11/04/12 09/07/24 [place]Vaishali FNP [address] [place] [address] PCP - General Family Medicine 09/08/24 09/08/24 Melly Heard MD [address] [place] [address] PCP - General Family Medicine 09/09/24 Kal Tong MD 100 [facility] [address] [place] [address] Nephrology 06/12/22 documented as of this encounter
--- OUTSIDE RECORDS SUMMARY | 2025-02-03 15:59 | XMS_ITS | Encounter Summary ---
Author Organization [employer] Address [address] [facility] [address] [place] [address] Care Team Providers Care Furniture Shampooer Name Role Phone Kal Tong MD Unavailable [phone] Melly Heard MD Primary Care Provider [phone] Encounter Details Date Type Department Care Team ([facility] st Contact Info) Description 01/30/2025 Population Health Risk Score [facility] () Department [address] [place] [id number] Provider, Population Health Generic Social History Tobacco Use Types Packs/Day Years [...] documented as of this encounter Care Teams Furniture Shampooer Relationship Specialty Start Date End Date Melly Heard MD [address] [place] [address] PCP - General Family Medicine 09/09/24 Kal Tong MD 100 [facility] 200 [place] [address] Nephrology 06/12/22 documented as of this encounter
--- OUTSIDE RECORDS SUMMARY | 2025-02-03 15:59 | XMS_ITS ---
Author Organization [facility] Care Team Providers Care Associate Agent Insurance Sales Name Role Phone Ina Lopez Unavailable Unavailable Ashley Colmenares Unavailable Unavailable Delia Tucker Unavailable Unavailable Ketty Sands Unavailable Unavailable Robel Lerma Unavailable Unavailable Yara Rojas Unavailable Unavailable Allergies and adverse reactions No Known Allergies Care Team Name Role Address Phone Organization Dates Delia Tucker PCP [address] [facility] [address], [place], [address], [place] (Office): [facility] 10/11/2023 - 10/18/2023 Ina Lopez Attending Physician [address] [place], [address], [place] (Office): [facility] 10/11/2023 - 10/18/2023 Ashley Colmenares Attending Physician [address] [address], [place], [address], [place] (Office): [facility] 10/11/2023 - 10/18/2023 Ketty Sands Attending Physician [address] [facility] [address], [place], [address], [place] (Office): [facility] 10/11/2023 - 10/18/2023 Robel Lerma Attending Physician [address] [place], [address], [place] (Office): [facility] 10/11/2023 - 10/18/2023 Yara Rojas Attending Physician [address] [place] [address], [place], [address], [facility] (Office): [facility] 10/11/2023 - 10/18/2023 Immunizations Immunization Status Vaccine Details Vaccine Code CodeSystem Artemio e Notes TB 1 Step Mantoux (PPD) cancelled tuberculin skin test; unspecified formulation 98 CVX created date: 10/12/2023 consent date: 10/12/2023 Mental Status Section Date Assessment Total Score Description 10/18/2023 CAM 0 No delirium ind icated 10/15/2023 BIMS 13 cognitively int act CAM 0 No delirium ind icated Problems Problem # Description Date of onset Resolved Date Code CodeSystem Concern Status 1 ENTEROCOLITIS DUE TO CLOSTRIDIUM DIFFICILE, NOT SPECIFIED RECURRENT 10/16/[address] active 2 ALCOHOL DEPENDENCE, UNCOMPLICATED 10/10/[address] active 3 HISTORY OF FALLING 10/10/[address] active 4 HYPOTHYROIDISM, UNSPECIFIED 10/10/[address] active 5 METABOLIC ENCEPHALOPATHY 10/10/[address] active 6 MUSCLE WEAKNESS (GENERALIZED) 10/10/[address] active 7 OTHER ABNORMALITIES OF GAIT AND MOBILITY 10/10/[address] active 8 OTHER SEIZURES 10/10/[address] act ros 9 PNEUMONITIS DUE TO INHALATION OF FOOD AND VOMIT 10/10/[address] active 10 SYSTEMIC INFLAMMATORY RESPONSE SYNDROME (SIRS) OF NON-INFECTIOUS ORIGIN WITH ACUTE ORGAN DYSFUNCTION 10/10/[address] active 11 ULCERATIVE (CHRONIC) PANCOLITIS WITHOUT COMPLICATIONS 10/10/[address] active 12 UNSPECIFIED FALL, SUBSEQUENT ENCOUNTER 10/10/[address] active 13 UNSPECIFIED PROTEIN-CALORIE MALNUTRITION 10/10/[address] active Reason for Referral No Reasons for Referral Entered Social History Social History Observation Description Start Date End Date Code Code System Current Smoking Status Tobacco smoking consumption unknown 458736760 SNOMED CT Sex Assigned At Female 1955 50309-2 [facility] Vital Signs Code Code System Vitals Name Values and Units Timing Information 58891-8 [facility] Pain Level Value=0.0 10/18/2023 90485-0 [facility] Weight Ecxsk=629.4 Units=Lbs 9279-1 [facility] Respiratory Rate Value=18.0 Units=/m in 10/16/2023 8462-4 [facility] Blood Pressure-Diastolic Value=64 Un its=mmHg 10/16/2023 8480-6 [facility] Blood Pressure-Systolic Fcgno=526 Un its=mmHg 10/16/2023 8310-5 [facility] Body Temperature Value=97.7 Units=?? F 10/16/2023 8867-4 [facility] Heart rate Value=76.0 Units=/min 48886-8 [facility] O2 % BldC Oximetry Value=95.0 Units= % 10/16/2023 8302-2 [facility] Height Value=60.0 Units=Inches 10/11/2023
--- OUTSIDE RECORDS SUMMARY | 2025-02-03 15:59 | XMS_ITS | Clinical Summary ---
Author Organization [employer] Address [address] [facility] 7[address] [place] [address] Care Team Providers Care Welfare Administrator Name Role Phone Kal Tong MD Unavailable [phone] Melly Heard MD Primary Care Provider [phone] Allergies No known active allergies Medications * This document contains information received from the source organization and may not represent a complete record from that organization. Multiple Vitamin (Multivitamin) tabletIndication s:Uncomplicated alcohol dependence (CMS/HCC) TAKE ONE TABLET BY MOUTH EVERY NIGHT AT BEDTIME 90 tablet 3 4 Active cloNIDine (Catapres) 0.1 MG tablet Take 1 tablet (0.1 mg) by mouth at bedtime. 90 tablet 1 5 Active Melatonin 10 MG capsule Take 1 capsule (10 mg) by mouth at bedtime. 90 capsule 1 5 Active cholecalciferol (Vitamin D-3) 25 MCG (1000 UT) tabletIndication s:Osteopenia, unspecified location Take 1 tablet (25 mcg) by mouth Once per day. 90 tablet 3 5 12/10/19 26 Active calcium carbonate (Calcium 600) 600 MG tabletIndication s:Osteopenia, unspecified location Take 1 tablet (600 mg) by mouth with breakfast and with evening meal. 60 tablet 11 5 12/10/19 26 Active pantoprazole (ProtoNix) 40 MG EC tabletIndication s:Uncomplicated alcohol dependence (CMS/HCC) TAKE ONE TABLET EVERY MORNING 30 tablet 3 5 Active Active Problems Problem Noted Date Diagnosed Date Anxiety and depression 11/26/2024 Mixed stress and urge urinary incontinence 11/26 Assessment & Plan (11/26/2024 10:33 AM EST): Will need to address next visit, patient very tangential. Wear pulls up. Will need to discuss assessment, management and trial of pharmacotherapy. Needs pelvic exam Blurry vision 11/26/2024 Assessment & Plan (11/26/2024 10:35 AM EST): Reports hx of astigmatism and blurry vision, has not seen eye doctor in years Healthcare maintenance 09/08/2024 Hypothyroidism, unspecified 10/10/2023 Ulcerative (chronic) pancolitis without complica tions 10/10/2023 Other seizures 10/10/2023 Assessment & Plan (11/26/2024 10:34 AM EST): Patient non compliant with medications Dilutional hyponatremia 06/28/2023 Alcohol dependence 12/07/2022 Assessment & Plan (07/03/2023 3:31 PM EDT): Assessment: Patient with excessive alcohol use (drinking 1.5 liters of wine a day, persistent desire to drink, unsuccessful attempts to stop, and alcohol use is continued despite knowledge of having a recurrent physical problems that is likely to have been caused or exacerbated by alcohol). Symptoms are in the context of biosychosocial stressors of chronic disease,and lack of OP ). Patient care. Caitlyn will benefit from [facility] AUD clinic, OP therapy and engaging in community activities at the [facility] [place]. At this time Caitlyn Saab meets criteria for Visit Diagnoses: Problem List Items Addressed This Visit Other Alcohol dependence ([facility]/HCC) Patient ready to address current needs No Strengths- Caitlyn is open and has several family members that she stays in touch with, She is in there precontemplation stage of change. PLAN: 1. Follow up with [facility]: Recommended for follow-up: 07/05/2023 2. Patient goal is to engage in follow up BE and consider OP therapy 3. Behavioral Recommendations a. Engagement in activities in the community b. FU BE Posttraumatic stress disorder 12/07/2022 Hypercholesterolemia 08/29/2013 Resolved Problems Problem Noted Date Diagnosed Date Resolved Date Acute kidney injury 09/08/2024 11/26/19 25 Systemic inflammatory respon se syndrome (sirs) of non-infectious origin with acute organ dysfunction 10/10/2023 11/26/2024 Benign hypertension 08/29/2013 06/28/20 23 Encounters Date Type Department Care Team Description 01/30/2025 Population Health Risk Score [facility] Department [address] [id number] Provider, Population Health Generic 12/28/2024 Refill [facility] MEDICINE [address] [place] [address] Kita Figueroa MD Uncomplicated alcohol dependence (CMS/HCC) 12/11/2024 Telephone [facility] PEDIATRICS [address] [place] [address] Melly Heard MD Results 12/10/2024 Orders Only [facility] [address] [place] [id number] Roberta, Vaishali, [employer] JOINT BUILDER Osteopenia, unspecified location (Primary Dx) 12/03/2024 Refill [facility] MED & PEDS [address] [place] [address] Tima Mckeon MD 11/26/2024 9:15 AM EST Office Visit [facility] P[facility] [address] [place] [address] Melly Heard MD Uncomplicated alcohol dependence (CMS/HCC) (Primary Dx); Encounter for immunization; Hypothyroidism, unspecified type; Mixed stress and urge urinary incontinence; Other seizures (CMS/HCC); Blurry vision 11/26/2024 Travel 11/25/2024 Telephone [facility] MED [facility] PEDS [address] [place] [address] Melly Heard MD CHART PREP 11/25/2024 Patient Outreach [facility] [address] [place] [address] Melly Heard MD Pre-visit Planning (Annual wellness visit unscheduled) 11/18/2024 Patient Outreach [facility] [address] [place] [address] Melly Heard MD Pre-visit Planning ([facility] unable to reach [facility]) from Last 3 Months Immunizations Name Administration Dates Next Due Hep A, Adult 06/27/2022,12/14/2021 Hep B, adult 06/27/2022,04/26/2022,12/14/2021 Influenza Injectable Quadriv alant Preservative Free IIV4 MDCK 08/10/2018 Influenza injectable quadriv alent IIV4 with preservative 08/09/2017 Influenza injectable quadriv alent preservative free 12/14/2021,08/19/2020 Influenza, High Dose Seasona l, Preservative Free 11/26/2024 Influenza, IIV3, injectable 12/14/2021,0 08/10/2018,08/09/2017,09/01 Influenza, Split (incl. juanito fied surface antigen) 07/17/2012 Influenza, seasonal, injecta ble, preservative free 09/01/2016 Breanna SARS-CoV-2 Vaccination 02/23/2021 Pfizer Covid-19 Vaccine 12+ 12/09/2021 Pneumococcal Polysaccharide PPSV23 10/03/2014 Td (adult), 5 Lf tetanus tox oid, preservative free, adsorbed 01/23/2015,01/21/2014 Td (adult), unspecified 01/23/2015,01/21/2014 Tdap 06/07/2016, 5,06/13/2012,05/09 Zoster, live 08/09/2017 Family History Medical History Relation Name Comments Alcohol abuse Father Emphysema Father Stroke Mother Stroke Mother's Sister Hypothyroidism Sister Relation Name Status Comments Father Mother Mother's Sister Sister Social History Tobacco Use Types Packs/Day Years Used Date Smoking Tobacco: Never Smokeless Tobacco: Never Tobacco Cessation:Counseling Given: Not Answered Alcohol Use Standard Drinks/Week Comments Yes 0 [...] Orientation Straight 09/18/2022 10 :17 AM EDT Last Filed Vital Signs Vital Sign Reading Time Taken Comments Blood Pressure 106/72 11/26/2024 9:28 AM EST Pulse 74 11/26/2024 9:28 AM EST Temperature 36.6 ??C (97.8 ??F) 11/26/2024 9:28 AM ES T Respiratory Rate 18 11/26/2024 9:28 AM EST Oxygen Saturation 97% 11/26/2024 9:28 AM EST Inhaled Oxygen Concentration - - Weight 49.2 kg (108 lb 6.4 oz) 11/26/2024 9:28 A M EST Height 154 cm (5' 0.63 ) 11/26/2024 9:28 AM EST Body Mass Index 20.73 11/26/2024 9:28 AM EST Plan of Treatment Health Maintenance Due Date Last Done Comments CT Colonography 1955 Colonoscopy 1955 Colorectal Cancer Screening 1955 FIT DNA/Cologuard 1957 FIT 1955 FOBT 1955 Sigmoidoscopy 1957 Alcohol/Substance Use Screening 1969 SDOH Screening 08/13/2025 08/13/2024 COVID-19 Vaccine ( - season) 2025 12/09/2021, 02/23/2021 Postponed from 07/20/2024 (Patient Refused) Depression Screening 11/26/2025 11/26/2024, 11/26/19 Pneumococcal Vaccine: 50+ Years (2 of 2 - PCV) 11/26/2025 10/03/2014 Postponed from 10/03/2015 (Patient Refused) Tobacco Screening 11/26/2025 11/26/2024 Zoster Vaccines (2 of 3) 11/26/2025 08/09/2017 Pos tponed from 10/04/2017 (Patient Refused) Mammogram 12/02/2025 12/02/2024, 08/06/2023, 05/16/2022, Additional history exists DTaP/Tdap/Td Vaccines (9 - Td or Tdap) 06/07/2026 06/07/2016, 10/22/2015, 01/23/2015, Additional history exists Lipid Panel 09/08/2029 09/08/2024, 11/20, 05/09/2022, Additional history exists RSV Patients and Patients Aged 60 years or older (1 - 1-dose 75+ series) 2032 Hepatitis C Screening Completed 11/30/2021 Hepatitis A Vaccines Aged Out 06/27/2022, 12/14/19 22 No longer eligible based on patient's age to complete this topic Hepatitis B Vaccines Completed 06/27/2022, 04/26/2022, 12/14/2021 Influenza Vaccine Completed 11/26/2024, , 12/14/2021, Additional history exists HIB Vaccines Aged Out No longer eligi ble based on patient's age to complete this topic HPV Vaccines Aged Out No longer eligi ble based on patient's age to complete this topic IPV Vaccines Aged Out No longer eligi ble based on patient's age to complete this topic Meningococcal Vaccine Aged Out No massimo amanda eligible based on patient's age to complete this topic RSV under 20 months Aged Out No longe r eligible based on patient's age to complete this topic Rotavirus Vaccines Aged Out No longer eligible based on patient's age to complete this topic Procedures Procedure Name Priority Date/Time Associated Diagnosis Comments BD DEXA AXIAL Routine 12/02/2024 2:00 PM EST Asymptomatic menopausal state BI MAMMOGRAM SCREENING TOMOSYNTHESIS BILATERAL Routine 12/02/2024 1:45 PM EST Encounter for screening mammogram for breast cancer LIPID PANEL, STANDARD Routine 09/08/2024 12:21 PM EDT Alcohol use disorder ZZZ HISTORICAL HEPATITIS C AB W/REFL TO HCV RNA, QN, PCR Routine 11/30/2021 10:08 AM EST from Last 3 Months or Most Recently Relevant to Health Maintenance Results * BD DEXA Axial (12/02/2024 2:00 PM EST) Anatomical Region Laterality Modality Body Radiographic Kelly ging 12/02/2024 2:00 PM EST Narrative 12/03/2024 10:00 AM EST ? [facility] ? [address] ?[place] [address] ? Mammography Report ? Signed ? Patient: Ziemba,Caitlyn B ?MR#: [id number] ? : 1955 ?Acct:[id number] ? Age/Sex: 69 / F ?ADM Date: 01/14/25 ? Loc: HO.MAMMO ? Attending Dr: Vaishali [place] EXP[employer]ION JOINT BUILDER ? Ordering Physician: Roberta,Vaishali [employer] JOINT BUILDER ?Results: ? Date of Service: 12/02/24 ?Follow Up: ? Procedure(s): XR DEXA axial skeleton ?? Accession Number(s): [id number] ? cc: Melly Heard MD; Vaishali Granados EXP[employer]ION JOINT BUILDER ? EXAMINATION: ??Dual-Energy X-ray Absorptiometry - Bone Density Study ? HISTORY: ??Estrogen deficiency ? TECHNIQUE: [employer] Dual energy absorptiometry (DEXA) ?? of the lumbar spine, total left hip, and femoral neck was performed. ? COMPARISON: Comparison is made with the prior examination dated ?? 12/12/2018. ? FINDINGS: ? The bone mineral density of the lumbar spine is 1.599 with a T-score of ?? 3.5, and a Z-score of 5.8. ? This represents a BMD change of -1.1% compared to the prior exam. ??This ?? is not statistically significant. ? The bone mineral density of the left total hip is 0.779 with a T-score ?? of -1.8, and a Z-score of 0.0. ? This represents BMD change of -7.2% compared to the prior exam. ??This ?? is statistically significant. ? The bone mineral density of the left femoral neck is 0.835 with a ?? T-score of -1.5, and a Z-score of 0.5. ? This represents BMD change of 3.5% compared to the prior exam. ? FRACTURE RISK: ?? The FRAX index suggests a ten year probability of major osteoporotic ?? fracture of 8.0%, and of hip fracture 1.1%. ? MM/XR DEXA axial skeleton ?? IMPRESSION: ?? Based on bone mineral density, and according to World Health ?? Organization (WHO) criteria, the diagnosis is consistent with ?? osteopenia. ? All bone density values are in grams per centimeter squared. ?? At this facility, the least significant change in BMD with 95% ?? confidence is 0.022 at the lumbar spine, 0.027 at the hip, and 0.023 at ?? the distal 1/3 radius. ? Electronically signed by: ??Lazarus Romo MD ??12/03/2024 09:57 AM EST ?? RP ? Dictated By: ?Lazarus Romo MD ? Signed By: ?<Electronically signed by Lazarus Romo MD in OV> ?12/03/24 0957 ? DD/ 1400 ? TD/TT: 12/02/24 1415 ? Professor Of Forest [employer]: ? Procedure Note Ashley, Image - 12/03/2024 [facility] [address] [place] [address] Mammography Report Signed Patient: Caitlyn Saba BMR#: [id number] : 1955cct:[id number] Age/Sex: 69 / FADM Date: 12/02/24 Loc: K[facility] Attending Dr: Vaishali Granados [employer]ION JOINT BUILDER Ordering Physician: Vaishali GranadosPResults: Date of Service: 12/02/24Follow Up: Procedure(s): XR DEXA axial skeleton Accession Number(s): [id number] cc: Melly Heard MD; Vaishali Granados EXAMINATION: Dual-Energy X-ray Absorptiometry - Bone Density Study HISTORY: Estrogen deficiency TECHNIQUE: [employer] Dual energy absorptiometry (DEXA) of the lumbar spine, total left hip, and femoral neck was performed. COMPARISON: Comparison is made with the prior examination dated 12/12/2018. FINDINGS: The bone mineral density of the lumbar spine is 1.599 with a T-score of 3.5, and a Z-score of 5.8. This represents a BMD change of -1.1% compared to the prior exam. This is not statistically significant. The bone mineral density of the left total hip is 0.779 with a T-score of -1.8, and a Z-score of 0.0. This represents BMD change of -7.2% compared to the prior exam. This is statistically significant. The bone mineral density of the left femoral neck is 0.835 with a T-score of -1.5, and a Z-score of 0.5. This represents BMD change of 3.5% compared to the prior exam. FRACTURE RISK: The FRAX index suggests a ten year probability of major osteoporotic fracture of 8.0%, and of hip fracture 1.1%. MM/XR DEXA axial skeleton IMPRESSION: Based on bone mineral density, and according to World Health Organization (WHO) criteria, the diagnosis is consistent with osteopenia. All bone density values are in grams per centimeter squared. At this facility, the least significant change in BMD with 95% confidence is 0.022 at the lumbar spine, 0.027 at the hip, and 0.023 at the distal 1/3 radius. Electronically signed by: Lazarus Romo MD 12/03/2024 09:57 AM EST RP Dictated By: Lazarus Romo MD Signed By: <Electronically signed by Lazarus Romo MD in OV> 12/03/24 0957 DD/ 1400 TD/TT: 12/02/24 1415 Professor Of Forest Planning: [facility] EXP[employer]ION JOINT BUILDER IMG DXA PROCEDURES Final Resu lt * BI Mammogram Screening Tomosynthesis Bilateral (12/02/2024 1:45 PM EST) Anatomical Region Laterality Modality Breast Bilateral Mammography 12/02/2024 1:45 PM EST Narrative 12/10/2024 1:31 PM EST ? [facility] ? [address] ?[place] [address] ? Mammography Report ? Signed ? Patient: Ziemba,Caitlyn B ?MR#: [id number] ? : 1955 ?Acct:[id number] ? Age/Sex: 69 / F ?ADM Date: 12/02/24 ? Loc: HO.MAMMO ? Attending Dr: Vaishali Granados EXP[employer]ION JOINT BUILDER ? Ordering Physician: Vaishali Granados EXP[employer]ION JOINT BUILDER ?Results: 1Nega ?? tive ? Date of Service: 12/02/24 ?Follow Up: 1 Year From Orig ?? inal Mammogram ? Procedure(s): MM tomosynthesis screening BI ?? Accession Number(s): [id number] ? cc: Melly Heard MD; Vaishali Granados EXP[employer]ION JOINT BUILDER ? EXAMINATION: ?? MM SCREENING DIGITAL BREAST TOMOSYNTHESIS, BILATERAL ? CLINICAL INFORMATION: ? Screening. Asymptomatic. ? COMPARISON: ?? Mammography: Comparison is made with available priors ? TECHNIQUE: ?? Digital breast mammography with tomosynthesis is performed in both the ?? craniocaudal and mediolateral oblique views along with computer-aided ?? detection (CAD). ? FINDINGS: ?? The breasts are heterogeneously dense, which may obscure small masses ?? (ACR BI-RADS breast composition Category c). ? There are no significant masses, abnormal calcifications, or other ?? abnormalities. ? MM/MM tomosynthesis screening BI ?? IMPRESSION: ?? No mammographic evidence of malignancy. ? ASSESSMENT: ? BI-RADS BI-RADS 1 - Negative ? RECOMMENDATION: ?? Routine annual mammography screening. ? 1 year F/U ? This examination should not preclude the clinical evaluation of a ?? suspicious palpable abnormality. ? This patient's information was entered into a reminder system with a ?? target due date for their next mammogram. ? Electronically signed by: ??Jacy Howard DO ??12/10/2024 01:28 PM EST ?? RP ? Dictated By: ?Jacy Howard DO ? Signed By: ?<Electronically signed by Jacy Howard, DO in OV> ? 12/10/24 1328 ? DD/ 1345 ? TD/TT: 12/02/24 1418 ? Professor Of [employer]: ? Procedure Note Donjayeshter, Image - 12/10/2024 [facility] [address] [place] [address] Mammography Report Signed Patient: Caitlyn Saab BMR#: [id number] : 1955cct:[id number] Age/Sex: 69 / FADM Date: 12/02/24 Loc: HO.MAMMO Attending Dr: Vaishali Granados [employer] JOINT BUILDER Ordering Physician: Vaishali Granados FNPResults: 1Nega tive Date of Service: 12/02/24Follow Up: 1 Year From Orig inal Mammogram Procedure(s): MM tomosynthesis screening BI Accession Number(s): [id number] cc: Melly Heard MD; Vaishali Granados [employer]ION JOINT BUILDER EXAMINATION: MM SCREENING DIGITAL BREAST TOMOSYNTHESIS, BILATERAL CLINICAL INFORMATION: Screening. Asymptomatic. COMPARISON: Mammography: Comparison is made with available priors TECHNIQUE: Digital breast mammography with tomosynthesis is performed in both the craniocaudal and mediolateral oblique views along with computer-aided detection (CAD). FINDINGS: The breasts are heterogeneously dense, which may obscure small masses (ACR BI-RADS breast composition Category c). There are no significant masses, abnormal calcifications, or other abnormalities. MM/MM tomosynthesis screening BI IMPRESSION: No mammographic evidence of malignancy. ASSESSMENT: BI-RADS BI-RADS 1 - Negative RECOMMENDATION: Routine annual mammography screening. 1 year F/U This examination should not preclude the clinical evaluation of a suspicious palpable abnormality. This patient's information was entered into a reminder system with a target due date for their next mammogram. Electronically signed by: Jacy Howard DO 12/10/2024 01:28 PM [facility] Dictated By: Jacy Howard DO Signed By: <Electronically signed by Jacy Howard DO in OV> 12/10/24 1328 DD/ 1345 TD/TT: 12/02/24 1418 Professor Of Forest Planning: [facility] IMG BI PROCEDURES Final Resul t * (ABNORMAL) Lipid Panel, Standard (09/08/2024 12:21 PM EDT) Triglycerides 65 <150 mg/dL [facility] Comment:Desirable Triglyceri de: less than 150 mg/dLBorderline High Triglyceride 150-199 mg/dLHigh Triglyceride: 200-499 mg/dLVery High Triglyceride: greater than or equal to 5OO mg/dL Cholesterol 196 <200 mg/dL [facility] Comment:Desirable Cholestero l: less than 200 mg/dLBorderline High Cholesterol: 200-239 mg/dLHigh Cholesterol: greater than 239 mg/dL LDL Cholesterol Calculated 123(H) <100 mg/dL [facility] Comment:Desirable LDL: less than 100 mg/dLNear Optimal/Above Optimal LDL: 110- 129 mg/dLBorderline High LDL: 130-159 mg/dLHigh LDL: 160-189 mg/dLVery High LDL: greater than or equal to 190 mg/dL HDL Cholesterol 60 >40 mg/dL [facility] Comment:Desirable HDL: great er than 40 mg/dL Note: This HDL assay may give artificially low results in patients with liver disease. Blood Venous blood specimen / Unknown 09/08/2024 12:21 PM EDT 09/08/2024 1:37 PM EDT [facility] LAB BLOOD ORDERABLES Final Re sult [facility] [address] [place] [address] [phone] * HEPATITIS C AB W/REFL TO HCV RNA, QN, PCR (11/30/2021 10:08 AM EST) HEPATITIS C ANTIBODY NON-REACT ERICA NON-REACT ERICA [facility] INDEX 0.01 <1.00 [facility] Comment: ?? HCV antibody was non-reactive. There is no laboratory ?? evidence of HCV infection. ?? In most cases, no further action is required. However, if recent HCV exposure is suspected, a test for HCV RNA (test code 64375) is suggested. ?? For additional information please refer to http://education.[employer]/faq/DMJ31u4 (This link is being provided for informational/ educational purposes only.) ?? 11/30/2021 10:0 8 AM EST us Marco Antonio Novak MD HISTORICAL/NON ORDERABLE LABS Final Result [facility] [address] from Last 3 Months or Most Recently Relevant to Health Maintenance Insurance MEDIC[place] [address] [place] [id number] [facility] STANDARD * Guarantor: Caitlyn Saab Account Type Relation to Patient Date of Phone Billing Address Personal/Family Self [place], [place] Care Teams Welfare Administrator Relationship Specialty Start Date End Date Melly Heard MD [address] [place] [address] PCP - General Family Medicine 09/09/24 Kal Tong MD [address] [address] Nephrology 06/12/22
--- OUTSIDE RECORDS SUMMARY | 2025-02-03 15:59 | XMS_ITS | Encounter Summary ---
Author Organization [employer] Address [address] [place] [address] Care Team Providers Care Furnace Operator And Tender Name Role Phone Kita Figueroa MD Primary Care Provider [phone] Kal Tong MD Unavailable [phone] [facility] Primary Care Provider [phone] Melly Heard MD Primary Care Provider [phone] Encounter Details Date Type Department Care Team (Late st Contact Info) Description 07/14/2024 Orders Only [facility] [address] [place] [address] Provider, MD Vanessa Social History Tobacco Use [...] Procedure Name Priority Date/Time Associated Diagnosis Comments XR ABDOMEN 1 VIEW Routine 07/11/2024 10:37 AM EDT documented in this encounter Results * XR Abdomen 1 View (07/11/2024 10:37 AM EDT) Anatomical Region Laterality Modality Abdomen Radiographic Kelly ging us Historical Provider MD ROJAS XR PROCEDURES Final R esult documented in this encounter Visit Diagnoses Not on filedocumented in this encounter Care Teams Furnace Operator And Tender Relationship Specialty Start Date End Date Kita Figueroa MD [address] [place] [address] PCP - General Family Medicine 11/04/12 09/07/24 [facility] [address] [place] [address] PCP - General Family Medicine 09/08/24 09/08/24 Melly Heard MD [address] [place] [address] PCP - General Family Medicine 09/09/24 Kal Tong MD 100 [facility] [address] [place] [phone] Nephrology 06/12/22 documented as of this encounter
--- OUTSIDE RECORDS SUMMARY | 2025-02-03 15:59 | XMS_ITS | Encounter Summary ---
Author Organization [employer] Address [address] [place] [address] Care Team Providers Care Marker Delivery Name Role Phone Kita Figueroa MD Primary Care Provider [phone] Kal Tong MD Unavailable [phone] [facility] Primary Care Provider [phone] Melly Heard MD Primary Care Provider [phone] Reason for Visit * Reason Onset Date Comments FYI 07/22/2024 Encounter Details Date Type Department Care Team (Late st Contact Info) Description 07/22/2024 Telephone [facility] [address] [place] [address] Kita Figueroa MD [address] [place], [place] [id number] Social History Tobacco Use Types Packs/Day Years [...] encounter Miscellaneous Notes * Telephone Encounter - Juan Salcedo - 07/22/2024 3:36 PM EDT Tc from [facility] with [facility] calling to inform pcp they received referral for pt to receive home care services but pt is refusing services. If any questions you can contact [facility] at [phone]. documented in this encounter Plan of Treatment Not on file documented as of this encounter Visit Diagnoses Not on filedocumented in this encounter Care Teams Marker Delivery Relationship Specialty Start Date End Date Kita Figueroa MD [address] [place] [address] PCP - General Family Medicine 11/04/12 09/07/24 [facility] [address] [place] [address] PCP - General Family Medicine 09/08/24 09/08/24 Melly Heard MD [address] [place] [id number] PCP - General Family Medicine 09/09/24 Kal Tong MD [address] [facility] [place] [address] [place] [address] Nephrology 06/12/22 documented as of this encounter
--- OUTSIDE RECORDS SUMMARY | 2025-02-03 15:59 | XMS_ITS | Encounter Summary ---
Author Organization [employer] Address [address] [facility] 7[address] [place] [address] Care Team Providers Care Time Checker Name Role Phone Kita Figueroa MD Primary Care Provider [phone] Kal Tong MD Unavailable [phone] [facility] Primary Care Provider [phone] Melly Heard MD Primary Care Provider [phone] Encounter Details Date Type Department Care Team (Late st Contact Info) Description 11/16/2023 Orders Only [facility] [address] [place] [address] Tima Mckeon MD [address] [place] [address] Social History Tobacco Use Types Packs/Day Years [...] on filedocumented in this encounter Care Teams Time Checker Relationship Specialty Start Date End Date Kita Figueroa MD [address] [place] [address] PCP - General Family Medicine 11/04/12 09/07/24 [facility] [address] [place] [address] PCP - General Family Medicine 09/08/24 09/08/24 Melly Heard MD [address] [place] [address] PCP - General Family Medicine 09/09/24 Kal Tong MD [address] [facility] [address] [address] Nephrology 06/12/22 documented as of this encounter
--- OUTSIDE RECORDS SUMMARY | 2025-02-03 15:59 | XMS_ITS | Clinical Summary ---
Author Organization [facility] ity Address [address] [place] [address] Care Team Providers Care [employer] Labourer Name Role Phone Kita Figueroa MD Primary Care Provider [phone] Social History Tobacco Use Types Packs/Day Years Used Date Smoking Tobacco: Never Assessed Comments Unknown Sex and Gender Information Value Date Recorded Sex Assigned at Not on file Legal Sex Female 10:48 AM EST Gender Identity Not on file Sexual Orientation Not on file Plan of Treatment Health Maintenance Due Date Last Done Comments Breast Cancer Screening 1955 DTaP,Tdap,and Td Vaccines (1 - Tdap) 1976 Pneumococcal Vaccine: 50+ Ye ars (1 of 1 - PCV) 2007 Zoster Vaccines (1 of 2) 2007 Colorectal Cancer Screening: Colonoscopy 10/23/2022 Depression Screening 10/23/2022 Falls Risk Assessment 10/23/2022 Hepatitis C Screening 10/23/2022 Osteoporosis Screening (Bone Density Screening) 10/23/2022 Social Influencers of Health Screening 10/23/2022 COVID-19 Vaccine ( - 2023-2 5 season) 2024 Influenza Vaccine (#1) 2024 RSV Immunization Patients 60 + Years Old (1 - 1-dose 75+ series) 2032 HIB Vaccines Aged Out No longer eligi ble based on patient's age to complete this topic HPV Vaccines Aged Out No longer eligi ble based on patient's age to complete this topic Hepatitis A Vaccines Aged Out No long er eligible based on patient's age to complete this topic Hepatitis B Vaccines Aged Out No long er eligible based on patient's age to complete this topic IPV Vaccines Aged Out No longer eligi ble based on patient's age to complete this topic MMR Vaccines Aged Out No longer eligi ble based on patient's age to complete this topic Meningococcal ACWY Vaccine Aged Out N o longer eligible based on patient's age to complete this topic Meningococcal B Vacine Aged Out No lo nger eligible based on patient's age to complete this topic RSV Immunization Patients Un elizabeth 20 months Aged Out No longer eligible b ased on patient's age to complete this topic Varicella Vaccines Aged Out No longer eligible based on patient's age to complete this topic Advance Directives Documents on File Type Date Recorded Patient Fruit Sprayer Expl anation Health Care Decision (hx) 03/28/2023 AD LI DIRECTIVE Health Care Decision (hx) 03/28/2023 AD LI DIRECTIVE Health Care Decision (hx) 03/13/2023 AD LI DIRECTIVE Health Care Decision (hx) 03/13/2023 AD LI DIRECTIVE Health Care Decision (hx) 03/13/2023 AD LI DIRECTIVE Health Care Decision (hx) 03/13/2023 AD LI DIRECTIVE Health Care Decision (hx) 03/06/2023 AD LI DIRECTIVE Health Care Decision (hx) 03/06/2023 AD LI DIRECTIVE Health Care Decision (hx) 03/06/2023 AD LI DIRECTIVE Health Care Decision (hx) 03/06/2023 AD LI DIRECTIVE Care Teams [employer] Labourer Relationship Specialty Start Date End Date Kita Figueroa MD [address] [place] [id number] PCP - General 03/02/23
--- OUTSIDE RECORDS SUMMARY | 2025-02-03 15:59 | XMS_ITS | Clinical Summary ---
Author Organization [facility] Facility Address [address] [address] Care Team Providers Care [employer] Developer Name Role Phone Melly Heard MD Primary Care Provider [phone] Allergies No known active allergies Medications thiamine (VITAMIN B-1) 100 MG tablet Take 100 mg by mouth 1 (one) time each day Active levETIRAcetam (KEPPRA) 1000 MG tablet Take 1,000 mg by mouth in the morning and 1,000 mg at noon and 1,000 mg in the evening. 9 Active Cholecalciferol (Vitamin D3) 25 MCG tablet Take 25 mcg by mouth 1 (one) time each day 2 Active folic acid (FOLVITE) 1 MG tablet Take 1 mg by mouth 1 (one) time each day Active pyridoxine (VITAMIN B-6) 50 MG tablet Take 50 mg by mouth 1 (one) time each day 2 Active Multiple Vitamin (multivitamin) tablet Take 1 tablet by mouth 1 (one) time each day Active levothyroxine (SYNTHROID, LEVOTHROID) 75 MCG tablet TAKE ONE TABLET EVERY MORNING BEFORE BREAKFAST 3 Active Melatonin-Pyrid oxine (MELATIN PO) Take 10 mg by mouth Active Active Problems Problem Noted Date Diagnosed Date Hypo-osmolality and hyponatremia 06/12/2022 Essential (primary) hypertension 06/12/2022 History of alcohol abuse 10/01/2020 Family History Medical History Relation Comments Stroke Mother Relation Status Comments Mother Social History Tobacco Use Types Packs/Day Years Used Date Smoking Tobacco: Never Smokeless Tobacco: Never Tobacco Cessation:Counseling Given: Not Answered Alcohol Use Standard Drinks/Week Comments Never 0 (1 standard drink = 0.6 oz pur e alcohol) Comments Unknown Sex and Gender Information Value Date Recorded Sex Assigned at Not on file Legal Sex Female 5:25 PM EST Gender Identity Not on file Sexual Orientation Not on file Last Filed Vital Signs Vital Sign Reading Time Taken Comments Blood Pressure 115/60 08/04/2024 2:07 PM EDT Pulse 59 08/04/2024 2:07 PM EDT Temperature - - Respiratory Rate - - Oxygen Saturation 96% 08/04/2024 2:07 PM EDT Inhaled Oxygen Concentration - - Weight 48.4 kg (106 lb 9.6 oz) 08/04/2024 2:07 P M EDT Height 157.5 cm (5' 2 ) 07/13/2022 3:56 PM EDT Body Mass Index 19.5 07/13/2022 3:56 PM EDT Plan of Treatment Health Maintenance Due Date Last Done Comments Breast Cancer Screening 1955 Colorectal Cancer Screening: Annual FOBT 2006 Colorectal Cancer Screening: Colonoscopy 2006 Colorectal Cancer Screening: Sigmoidoscopy 2006 Pneumococcal Vaccine: 65+ Years (2 of 2 - PCV) 10/03/2015 10/03/2014 Influenza Vaccine (#1) 2024 2, 08/19/2020, 08/10/2018, Additional history exists Hepatitis B Vaccine Aged Out 06/27/2022, 04/26/2022, 12/14/2021 No longer eligible based on patient's age to complete this topic Insurance [place]ID [place]ID [place]ARE Care Teams Etl [employer] Developer Relationship Specialty Start Date End Date Melly Heard MD PCP - General Family Medicine 05/08/22
== END 2025-02-03 14:42 | disposition home or self-care (01) ==
PROVIDERS: PCP Family Medicine; Visit Provider Physician Assistant
DX: M79.652 Pain in left thigh (principal)

== ENCOUNTER → 2025-02-03 13:32 | Outpatient (BNVA) | payer MEDICARE, MEDICAID, SELFPAY | PROVIDERS: PCP Family Medicine; Visit Provider Physician Assistant | DX: M79.652 Pain in left thigh (principal) | CPT/HCPCS: 99212 ==

== ENCOUNTER 2025-02-20 10:40 | Outpatient (REF) | payer MEDICARE, MEDICAID, SELFPAY ==
--- OUTSIDE RECORDS SUMMARY | 2025-02-20 12:15 | XMS_ITS | Clinical Summary ---
Author Organization [facility] Facility Address [address] [address] Care Team Providers Care Cost Estimator Name Role Phone Melly Heard MD Primary Care Provider [phone] Allergies No known active allergies Medications thiamine [...] this topic Insurance [place]ID [place]ID [place] MEDICARE Care Teams Cost Estimator Relationship Specialty Start Date End Date Melly Heard MD PCP - General Family Medicine 05/08/22
--- OUTSIDE RECORDS SUMMARY | 2025-02-20 12:15 | XMS_ITS | Clinical Summary ---
Author Organization [facility] Address [address] [place] [address] Phone Care Team Providers Care Battery Starter Name Role Phone Melly Heard MD Primary Care Provider [phone] Allergies No known active allergies Medications methocarbamoL (ROBAXIN) 750 mg tablet Take 1 tablet (750 mg total) by mouth 4 (four) times a day if needed for muscle spasms for up to 5 days. 20 each 5 Active magnesium oxide (MAG-OX) 400 mg magnesium tablet Take 1 tablet (400 mg total) by mouth 1 (one) time each day for 7 doses. 7 tablet 5 02/19/20 25 methocarbamoL (ROBAXIN) 750 mg tablet Take 1 tablet (750 mg total) by mouth 3 (three) times a day if needed for muscle spasms for up to 30 doses. 30 each 5 02/12/20 25 Discontinued Encounters Date Type Department Care Team Description 02/10/2025 11:47 PM EDT - 02/11/2025 4:40 AM EDT Emergency [facility] Emergency [address] [place] [address] Leg muscle spasm (Primary Dx); Dehydration; Weakness Discharge Disposition: Home or Self Care from Last 3 Months Social History Tobacco Use Types Packs/Day Years Used Date Smoking Tobacco: Never Assessed Comments Unknown Sex and Gender Information Value Date Recorded Sex Assigned at Female 02/11/2025 12:08 AM EDT Legal Sex Female 10:48 AM EST Gender Identity Female 02/11/2025 12:08 AM EDT Sexual Orientation Straight 02/11/2025 12 :08 AM EDT Last Filed Vital Signs Vital Sign Reading Time Taken Comments Blood Pressure 161/90 02/11/2025 2:43 AM EDT Pulse 67 02/11/2025 2:43 AM EDT Temperature 36.5 ??C (97.7 ??F) 02/11/2025 2:43 AM ED T Respiratory Rate 18 02/11/2025 2:43 AM EDT Oxygen Saturation 99% 02/11/2025 2:43 AM EDT Inhaled Oxygen Concentration - - Weight 49.9 kg (110 lb) 02/10/2025 11:35 PM EDT Height 160 cm (5' 3 ) 02/10/2025 11:35 PM EDT Body Mass Index 19.49 02/10/2025 11:35 PM EDT Plan of Treatment Health Maintenance Due Date Last Done Comments Breast Cancer Screening 1955 Pneumococcal Vaccine: 50+ Years (2 of 2 - PCV) 10/03/2015 10/03/2014 Zoster Vaccines (2 of 3) 10/04/2017 08/09/2017 Colorectal Cancer Screening: Colonoscopy 10/23/2022 Falls Risk Assessment 10/23/2022 Hepatitis C Screening 10/23/2022 Medicare Annual Wellness Visit 10/23/2022 Social Influencers of Health Screening 10/23/2022 COVID-19 Vaccine ( - season) 2024 12/09/2021, 02/23/2021 Depression Screening 11/26/2025 11/26/2024 Hypertension/CHF/CAD Annual BMP Blood Test 02/10/2026 02/10/2025 DTaP,Tdap,and Td Vaccines (7 - Td or Tdap) 06/07/2026 06/07/2016, 10/22/2015, 01/23/2015, Additional history exists Cholesterol Screening (Lipid Panel) 09/08/2029 09/08/2024 RSV Immunization Adult Patients (1 - 1-dose 75+ series) 2032 Osteoporosis Screening (Bone Density Screening) 12/02/2034 12/02/2024 Hepatitis A Vaccines Aged Out 06/27/2022, 12/14/19 22 No longer eligible based on patient's age to complete this topic Hepatitis B Vaccines Completed 06/27/2022, 04/26/2022, 12/14/2021 Influenza Vaccine Completed 11/26/2024, , 08/19/2020, Additional history exists HIB Vaccines Aged Out [...] to complete this topic RSV Immunization Patients Under 20 months Aged Out No longer eligible based on patient's age to complete this topic Varicella Vaccines Aged Out No longer eligible based on patient's age to complete this topic Procedures Procedure Name Priority Date/Time Associated Diagnosis Comments CBC WITH AUTO DIFFERENTIAL STAT 02/11/2025 4:07 AM EDT CBC AND DIFFERENTIAL STAT 02/11/2025 4:07 AM EDT DELAROSA URINE CULTURE TUBE STAT 02/11/2025 3:55 AM EDT URINALYSIS WITH REFLEX MICROSCOPIC AND CULTURE STAT 02/11/2025 3:55 AM EDT URINALYSIS WITH REFLEX MICROSCOPIC AND CULTURE STAT 02/11/2025 3:55 AM EDT CULTURE URINE STAT 02/11/2025 3:55 AM EDT SST - GOLD Routine 02/11/2025 3:10 AM EDT EXTRA TUBES Routine 02/11/2025 3:10 AM EDT TROPONIN I HIGH SENSITIVITY STAT 02/11/2025 3:10 AM EDT XR CHEST 2 VIEWS STAT 02/11/2025 2:42 AM EDT TROPONIN I HIGH SENSITIVITY STAT 02/11/2025 2:15 AM EDT [id number], RSV, FLU A AND B QUALITATIVE RT-PCR, INTERNAL LAB STAT 02/11/2025 2:15 AM EDT US BEDSIDE VASCULAR ACCESS Routine 02/11/2025 1:42 AM EDT ECG 12-LEAD STAT 02/11/2025 1:28 AM EDT ECG ANNOTATED 02/11/2025 CREATINE KINASE Add-On 02/10/2025 11:58 PM EDT MAGNESIUM STAT 02/10/2025 11:58 PM EDT BASIC METABOLIC PANEL STAT 02/10/2025 11:58 PM EDT from Last 3 Months Results * (ABNORMAL) CBC auto differential (02/11/2025 4:07 AM EDT) [facility] WBC 7.9 4.8 - 10.8 K/mcL LAB HEMETOLOGY METHOD 02/11/2025 4:14 AM EDT [facility] RBC 3.90 3.80 - 4.80 M/mcL LAB HEMETOLOGY METHOD 02/11/2025 4:14 AM EDT [facility] Hemoglobin 11.2(L) 11.5 - 16.0 g/dL LAB HEMETOLOGY METHOD 02/11/2025 4:14 AM EDT [facility] Hematocrit 34.9(L) 35.0 - 47.0 % LAB HEMETOLOGY METHOD 02/11/2025 4:14 AM EDT [facility] MCV 89.9 79.0 - 98.0 FL LAB HEMETOLOGY METHOD 02/11/2025 4:14 AM EDT [facility] MCH 28.9 27.0 - 32.0 pcg LAB HEMETOLOGY METHOD 02/11/2025 4:14 AM [facility] MCHC 32.1 32.0 - 37.0 g/dL LAB HEMETOLOGY METHOD 02/11/2025 4:14 AM [facility] RDW 12.9 11.0 - 15.0 % LAB HEMETOLOGY METHOD 02/11/2025 4:14 AM [facility] Platelets 340 130 - 400 K/mcL LAB HEMETOLOGY METHOD 02/11/2025 4:14 AM [facility] MPV 9.5 7.0 - 11.0 FL LAB HEMETOLOGY METHOD 02/11/2025 4:14 AM [facility] NRBC 0.0 <1.0 % LAB HEMETOLOGY METHOD 02/11/2025 4:14 AM [facility] NRBC Absolute 0.00 <0.10 K/mcL LAB HEMETOLOGY METHOD 02/11/2025 4:14 AM [facility] Neutrophils Relative 55.2 % LAB HEMETOLOGY METHOD 02/11/2025 4:14 AM [facility] Lymphocytes Relative 33.5 % LAB HEMETOLOGY METHOD 02/11/2025 4:14 AM [facility] Monocytes Relative 6.9 % LAB HEMETOLOGY METHOD 02/11/2025 4:14 AM [facility] Eosinophils Relative 3.2 % LAB HEMETOLOGY METHOD 02/11/2025 4:14 AM [facility] Basophils Relative 0.9 % LAB HEMETOLOGY METHOD 02/11/2025 4:14 AM [facility] Immature Granulocytes Relative 0.3 % LAB HEMETOLOGY METHOD 02/11/2025 4:14 AM [facility] Neutrophils Absolute 4.38 1.50 - 7.00 K/mcL LAB HEMETOLOGY METHOD 02/11/2025 4:14 AM EDT [facility] Lymphocytes Absolute 2.66 1.00 - 5.00 K/mcL LAB HEMETOLOGY METHOD 02/11/2025 4:14 AM EDT [facility] Monocytes Absolute 0.55 0.20 - 1.00 K/mcL LAB HEMETOLOGY METHOD 02/11/2025 4:14 AM EDT [facility] Eosinophils Absolute 0.25 0.00 - 0.50 K/mcL LAB HEMETOLOGY METHOD 02/11/2025 4:14 AM EDT [facility] Basophils Absolute 0.07 0.00 - 0.20 K/mcL LAB HEMETOLOGY METHOD 02/11/2025 4:14 AM EDT [facility] Immature Granulocytes Absolute 0.02 0.00 - 0.03 K/mcL LAB HEMETOLOGY METHOD 02/11/2025 4:14 AM EDT [facility] Blood Venous blood specimen / Unknown Venipuncture / Unknown 02/11/2025 4:07 AM EDT 02/11/2025 4:10 AM EDT us Kristin REYES LAB BLOOD ORDERABLES Final Resu lt [facility] [address] [place] [address], * (ABNORMAL) Urinalysis with reflex microscopic and culture (02/11/2025 3:55 AM EDT) Specific Byers Urine 1.012 1.003 - 1.030 LAB URINALYSIS - AUTOMATED METHOD 02/11/2025 4:28 AM EDT [facility] pH, Urine 6.5 5.0 - 8.0 pH LAB URINALYSIS - AUTOMATED METHOD 02/11/2025 4:28 AM EDT [facility] Leukocytes, Urine Trace(A) Negative LAB URINALYSIS - AUTOMATED METHOD 02/11/2025 4:28 AM [facility] Nitrite, Urine Negative Negative LAB URINALYSIS - AUTOMATED METHOD 02/11/2025 4:28 AM [facility] Protein, Urine Negative <=Trace mg/dL LAB URINALYSIS - AUTOMATED METHOD 02/11/2025 4:28 AM [facility] Glucose, Urine Negative Negative mg/dL LAB URINALYSIS - AUTOMATED METHOD 02/11/2025 4:28 AM [facility] Ketones, Urine Negative Negative mg/dL LAB URINALYSIS - AUTOMATED METHOD 02/11/2025 4:28 AM [facility] Urobilinogen, Urine 0.2 0.2 - 1.0 mg/dL LAB URINALYSIS - AUTOMATED METHOD 02/11/2025 4:28 AM [facility] Bilirubin, Urine Negative Negative LAB URINALYSIS - AUTOMATED METHOD 02/11/2025 4:28 AM [facility] Blood, Urine Negative Negative LAB URINALYSIS - AUTOMATED METHOD 02/11/2025 4:28 AM [facility] RBC, Urine 1.7 0 - 4 /HPF LAB URINALYSIS - AUTOMATED METHOD 02/11/2025 4:28 AM [facility] WBC, Urine 1.2 0 - 4 /HPF LAB URINALYSIS - AUTOMATED METHOD 02/11/2025 4:28 AM [facility] Squamous Epithelial, Urine 13 0 - 60 /LPF LAB URINALYSIS - AUTOMATED METHOD 02/11/2025 4:28 AM [facility] Bacteria, Urine Negative Negative /HPF LAB URINALYSIS - AUTOMATED METHOD 02/11/2025 4:28 AM [facility] Hyaline Casts, Urine 1.2 0 - 3 /LPF LAB URINALYSIS - AUTOMATED METHOD 02/11/2025 4:28 AM [facility] Urine Urine specimen obtained by clean catch procedure / Unknown Non-blood Collection / Unknown 02/11/2025 3:55 AM EDT 02/11/2025 4:09 AM EDT Lazarus REYES LAB URINE ORDERABLES Lindsay l Result Performing Organization Address [facility]/ZIP Co de Phone Number [facility] [address] [place] [address], [place] [phone] * Delarosa urine culture tube (02/11/2025 3:55 AM EDT) Extra Tube Hold for add-ons. 02/11/2025 6:01 AM EDT [facility] Comment:Auto resulted. Urine Urine specimen obtained by clean catch procedure / Unknown Non-blood Collection / Unknown 02/11/2025 3:55 AM EDT 02/11/2025 4:09 AM EDT Lazarus REYES LAB URINE ORDERABLES Lindsay l Result Performing Organization Address [facility]/ZIP Co de Phone Number [facility] [address] [place] [address], [place] [phone] * Culture urine (02/11/2025 3:55 AM EDT) Culture, Urine <10,000 cfu/mL Mixed bacterial daniela 02/12/2025 11:28 AM EDT [facility] Urine Urine specimen obtained by clean catch procedure / Unknown Non-blood Collection / Unknown 02/11/2025 3:55 AM EDT 02/11/2025 4:28 AM EDT Lazarus REYES LAB MICROBIOLOGY - GENERA L ORDERABLES Final Result Performing Organization Address [facility]/ZIP Co de Phone Number [facility] [address] [place] [address], [place] [phone] * Troponin I high sensitivity (NOW and then in 1 hour) (02/11/2025 3:10 AM EDT) Only the most recent of2 resultswithin the time period is included. Pathologist [facility] High Sensitivity Troponin I 5 <=54 ng/L LAB CHEMISTRY METHOD 02/11/2025 4:14 AM EDT [facility] Blood Venous blood specimen / Unknown Venipuncture / Unknown 02/11/2025 3:10 AM EDT 02/11/2025 3:47 AM EDT Narrative [facility] - 02/11/2025 4:14 AM EDT High levels of biotin in samples may falsely decrease hsTroponin values. ??Use caution when interpreting hsTroponin results in patients taking biotin who exhibit renal impairment (eGFR <60) or in patients taking more than 20 mg/day of biotin. Lazarus REYES LAB BLOOD ORDERABLES Lindsay l Result Performing Organization Address City/[facility]/ZIP Co de Phone Number [facility] [address] [place] [address], [place] [phone] * SST tube (02/11/2025 3:10 AM EDT) [facility] Extra Tube Hold for add-ons. 02/11/2025 5:01 AM EDT [facility] Comment:Auto resulted. Blood Venous blood specimen / Unknown 02/11/2025 3:10 AM EDT 02/11/2025 3:48 AM EDT Kristin REYES LAB BLOOD ORDERABLES Final Resu lt Performing Organization Address [facility]/ZIP Co de Phone Number [facility] [address] [place] [address], [place] [phone] * XR Chest 2 Views (02/11/2025 2:42 AM EDT) Anatomical Region Laterality Modality Body Radiographic Kelly ging 02/11/2025 8:59 AM EDT Impressions 02/11/2025 9:03 AM EDT Impression: No active pulmonary process identified. Telerad ERIC ([id number]) -------- FINAL REPORT -------- Dictated By: Ruby Tafoya Dictated Date: 02/11/2025 08:59 ET Assigned Physician: Ruby Tafoya Reviewed and Electronically Signed By: Ruby Tafoya Signed Date: 02/11/2025 09:03 ET Workstation ID: [id number] Transcribed By: Self Edit Transcribed Date: 02/11/2025 08:59 ET Narrative 02/11/2025 9:03 AM EDT History: Generalized weakness. Comparison: 07/10/24, 09/25/23, thoracic CT 10/06/23 Findings: PA and lateral views. The cardiac silhouette is within normal limits for size. Hilar contours and pulmonary vascularity are within normal limits. The lungs are clear. The costophrenic angles are sharp. 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 Procedure Note Ruby Tafoya MD - 02/11/2025 History: Generalized weakness. Comparison: 07/10/24, 09/25/23, thoracic CT 10/06/23 Findings: PA and lateral views. The cardiac silhouette is within normal limits forsize. Hilar contours and pulmonary vascularity are within normal limits.The lungs are clear. The costophrenic angles are sharp. A large bridging osteophyte is again seen along the right lateral aspectof the mid thoracic spine. IMPRESSION: Impression: No active pulmonary process identified. Telerad ERIC ([id number]) -------- FINAL REPORT -------- Dictated By: Ruby Tafoya Dictated Date: 02/11/2025 08:59 ET Assigned Physician: Ruby Tafoya Reviewed and Electronically Signed By: Ruby Tafoya Signed Date: 02/11/2025 09:03 ET Workstation ID: [id number] Transcribed By: Self Edit Transcribed Date: 02/11/2025 08:59 ET Lazarus REYES IMG XR PROCEDURES Final R esult * [id number], RSV, Influenza A and B qualitative RT-PCR (02/11/2025 2:15 AM EDT) Influenza A PCR Not Detected Not Detected LAB MICROBIOLOGY METHOD 02/11/2025 3:38 AM EDT [facility] Influenza B PCR Not Detected Not Detected LAB MICROBIOLOGY METHOD 02/11/2025 3:38 AM EDT [facility] RSV PCR Not Detected Not Detected LAB MICROBIOLOGY METHOD 02/11/2025 3:38 AM EDT [facility] SARS COV-2 Not Detected Not Detected LAB MICROBIOLOGY METHOD 02/11/2025 3:38 AM EDT [facility] Swab Both anterior nares / Unknown Non-blood Collection / Unknown 02/11/2025 2:15 AM EDT 02/11/2025 2:35 AM EDT Narrative [facility] - 02/11/2025 3:38 AM EDT Disclaimer: ??Testing was performed using the [employer] GeneXpert Xpress SARS-CoV-2 _Flu_RSV PLUS PCR assay. ??The manner in which this information is used to guide patient care is the responsibility of the healthcare provider. ??Results should be correlated with the clinical history, epidemiological data, and other data available to the clinician evaluating the patient. ??Negative results do not preclude infection. ??This test has been authorized by the FDA under an Emergency Use Authorization (EUA). ??This test is only authorized for the duration of time the declaration that circumstances exist justifying the authorization of the emergency use of in vitro diagnostic tests for detection of SARS-CoV-2 virus and/or diagnosis of COVID-19 infection under section 564 (b) (1) of the Act, 21 U.S.C 360bbb-3 (b) (1), unless the authorization is terminated or revoked sooner. ?? Reference Range: Not Detected Fact sheet for Healthcare providers can be found at https://www.fda.gov/media/537586/download. ?? Fact sheet for Healthcare patients can be found at https://www.fda.gov/media/625379/download. Lazarus REYES LAB MICROBIOLOGY - GENERA L ORDERABLES Final Result KENDAL [facility] [address] [place] [address], * [place] ED Bedside Vascular Access (02/11/2025 1:42 AM EDT) Anatomical Region Laterality Modality Ultrasound Narrative 02/11/2025 1:42 AM EDT Octavio Tejada MD ? 02/12/2025 11:31 AM ED Bedside Vascular Access Date/Time: 02/11/2025 1:42 AM Performed by: ERIC Hirsch Authorized by: ERIC Hirsch ?? Comments: ?? Emergency Ultrasound Guidance for Peripheral IV Encounter: 1:40 AM Pre-Procedure Check Performed on Patient, Procedure, Side, Site: Yes Indication: RN unable to obtain, IV fluids Catheter length: 2.5 inch Catheter gauge: 20-gauge Location: Left upper arm Specific Vein if applicable: Left brachial vein Results / Confirmation: Adequate blood return / Flushes well / Secured Comments: Patient tolerated well. ??Images uploaded electronically. Lazarus REYES BEDSIDE PROCEDURES Fin al Result * ECG 12 lead (02/11/2025 1:28 AM EDT) Ventricular Rate ECG 68 BPM GEMUSE Atrial Rate 68 BPM GEMUSE P-R Interval 118 ms GEMUSE QRS Duration 62 ms GEMUSE Q-T Interval 424 ms GEMUSE QTc 450 ms GEMUSE P Wave [place] 51 degrees GEMUSE R [place] -5 degrees GEMUSE T [place] -3 degrees GEMUSE ECG Interpretation Normal sinus rhythm Possible Anterior infarct , age undetermined Abnormal ECG When compared with ECG of 11-JUL-2024 15:43, No significant change was found Confirmed by LACEY HUANG ([id number]) on 02/11/2025 8:49:35 PM GEMUSE 02/11/2025 1:28 AM EDT 02/11/2025 8:49 PM EDT Lazarus REYES ECG ORDERABLES Final Res ult Performing Organization Address City/[facility]/ZIP Co de Phone Number GEMUSE * ECG-Annotated (02/11/2025) us Provider Onbase MD ECG ORDERABLES Final Result * (ABNORMAL) Magnesium (02/10/2025 11:58 PM EDT) [facility] Magnesium 1.7(L) 1.9 - 2.6 mg/dL LAB CHEMISTRY METHOD 02/11/2025 12:43 AM EDT [facility] Blood Venous blood specimen / Unknown Venipuncture / Unknown 02/10/2025 11:58 PM EDT 02/11/2025 12:06 AM EDT Lazarus REYES LAB BLOOD ORDERABLES Lindsay l Result Performing Organization Address [facility] de Phone Number [facility] [address] [place] [address], * Creatine kinase (02/10/2025 11:58 PM EDT) [facility] Total CK 126 22 - 269 unit/L LAB CHEMISTRY METHOD 02/11/2025 3:21 AM EDT [facility] Blood Venous blood specimen / Unknown Venipuncture / Unknown 02/10/2025 11:58 PM EDT 02/11/2025 12:06 AM EDT Kristin REYES LAB BLOOD ORDERABLES Final Resu lt Performing Organization Address [facility] Co de Phone Number [facility] [address] [place] [address], [place] [phone] * (ABNORMAL) Basic metabolic panel (02/10/2025 11:58 PM EDT) Sodium 140 133 - 145 mmol/L LAB CHEMISTRY METHOD 02/11/2025 12:43 AM [facility] Potassium 4.5 3.5 - 5.5 mmol/L LAB CHEMISTRY METHOD 02/11/2025 12:43 AM [facility] Chloride 109 96 - 110 mmol/L LAB CHEMISTRY METHOD 02/11/2025 12:43 AM [facility] CO2 27 21 - 32 mmol/L LAB CHEMISTRY METHOD 02/11/2025 12:43 AM [facility] Anion Gap 4 3 - 11 LAB CHEMISTRY METHOD 02/11/2025 12:43 AM [facility] Glucose 108(H) 70 - 100 mg/dL LAB CHEMISTRY METHOD 02/11/2025 12:43 AM [facility] BUN 26(H) 5 - 25 mg/dL LAB CHEMISTRY METHOD 02/11/2025 12:43 AM [facility] Creatinine 0.78 0.50 - 1.10 mg/dL LAB CHEMISTRY METHOD 02/11/2025 12:43 AM [facility] eGFR 83 >=60 mL/min/1. 73m2 LAB CHEMISTRY METHOD 02/11/2025 12:43 AM [facility] Comment:Calculation based on the??Chronic Kidney Disease Epidemiology Collaboration (CKD-EPI) equation refit??without adjustment for race. BUN/Creatinine Ratio 33.3 LAB CHEMISTRY METHOD 02/11/2025 12:43 AM [facility] Calcium 9.2 8.5 - 10.5 mg/dL LAB CHEMISTRY METHOD 02/11/2025 12:43 AM [facility] Blood Venous blood specimen / Unknown Venipuncture / Unknown 02/10/2025 11:58 PM EDT 02/11/2025 12:06 AM EDT us Lazarus REYES LAB BLOOD ORDERABLES Lindsay l Result [facility] [address] [place] [address], from Last 3 Months Insurance MEDICARE MEDICAID - [place] Advance Directives Documents on File Type Date Recorded Patient Simplex Operator Expl anation Health Care Decision (hx) 03/28/2023 [...] Care Decision (hx) 03/06/2023 AD LI DIRECTIVE * Full Code - Confirmed (Latest Code Status on File) Date Activated Date Inactivated Comments 02/11/2025 2:20 AM 02/11/2025 6:[address] atus was ascertained in the following way: Code status discussion: discussion with patient To update the patient's code status, place a code status order. Do not modify or discontinue any currently active code status orders. Care Teams Battery Starter Relationship Specialty Start Date End Date Melly Heard MD [address] [place] [id number] PCP - General Family Medicine 02/11/25
--- OUTSIDE RECORDS SUMMARY | 2025-02-20 12:15 | XMS_ITS | Encounter Summary ---
Author Organization [employer] Address [address] [place] [address] Care Team Providers Care Market Research Worker Name Role Phone Kal Tong MD Unavailable [phone] Melly Heard MD Primary Care Provider [phone] Encounter Details Date Type Department Care Team (Late st Contact Info) Description 02/12/2025 Orders Only [facility] [address] [place], [place] [id number] Provider, MD Vanessa Social History Tobacco Use [...] your housing situation today? I have erendira tereso 08/13/[address] you li [...] Procedure Name Priority Date/Time Associated Diagnosis Comments ECG 12-LEAD Routine 02/11/2025 8:49 AM EDT documented in this encounter Results * ECG 12 lead (02/11/2025 8:49 AM EDT) us Historical Provider ECG ORDERABLES Final Res ult documented in this encounter Visit Diagnoses Not on filedocumented in this encounter Additional Health Concerns Assessment Noted Time PHQ-9 Depression Total Score: 4 11/26/19 25 11:10 AM EST documented as of this encounter Care Teams Market Research Worker Relationship Specialty Start Date End Date Melly Heard MD [address] [place] [address] PCP - General Family Medicine 09/09/24 Kal Tong MD [address] [facility] [address] [place] [address] Nephrology 06/12/22 documented as of this encounter
--- OUTSIDE RECORDS SUMMARY | 2025-02-20 12:15 | XMS_ITS | Encounter Summary ---
Author Organization [employer] Address [address] [place] [address] Care Team Providers Care Salesperson Neckties Name Role Phone Kita Figueroa MD Primary Care Provider [phone] Kal Tong MD Unavailable [phone] [facility] Primary Care Provider [phone] Melly Heard MD Primary Care Provider [phone] Reason for Visit * Reason Onset Date Comments FYI 07/22/2024 Encounter Details Date Type Department Care Team (Late st Contact Info) Description 07/22/2024 Telephone [facility] MEDICINE [address] [place] [address] Kita Figueroa MD [address] [place], [place] [id number] Social History Tobacco Use Types Packs/Day Years [...] any questions you can contact [facility] at [phone]. documented in this encounter Plan of Treatment Not on file documented as of this encounter Visit Diagnoses Not on filedocumented in this encounter Care Teams Salesperson Neckties Relationship Specialty Start Date End Date Kita Figueroa MD [address] [place] [address] PCP - General Family Medicine 11/04/12 09/07/24 [facility] [address] [place] [address] PCP - General Family Medicine 09/08/24 09/08/24 Melly Heard MD [address] [place] [address] PCP - General Family Medicine 09/09/24 Kal Tong MD [address] [facility] [address] [place] [address] Nephrology 06/12/22 documented as of this encounter
--- OUTSIDE RECORDS SUMMARY | 2025-02-20 12:15 | XMS_ITS | Encounter Summary ---
Author Organization [employer] Address [address] [facility] [address] 7t [place] [address] Care Team Providers Care Cost Reduction Engineer Name Role Phone Kita Figueroa MD Primary Care Provider [phone] Kal Tong MD Unavailable [phone] [facility] Primary Care Provider [phone] Melly Heard MD Primary Care Provider [phone] Encounter Details Date Type Department Care Team (Late st Contact Info) Description 07/14/2024 Orders Only [facility] MED & PEDS [address] [place] [address] Provider, MD Vanessa Social History Tobacco Use [...] on filedocumented in this encounter Care Teams Cost Reduction Engineer Relationship Specialty Start Date End Date Kita Figueroa MD [address] [place] [address] PCP - General Family Medicine 11/04/12 09/07/24 [facility] [address] [place] [address] PCP - General Family Medicine 09/08/24 09/08/24 Melly Heard MD [address] [place] [address] PCP - General Family Medicine 09/09/24 Kal Tong MD 100 [facility] 200 [place] [id number] Nephrology 06/12/22 documented as of this encounter
--- OUTSIDE RECORDS SUMMARY | 2025-02-20 12:15 | XMS_ITS | Encounter Summary ---
Author Organization [employer] Address 75 [facility] 7t [place] [address] Care Team Providers Care Canoe Maker Name Role Phone Kita Figueroa MD Primary Care Provider [phone] Kal Tong MD Unavailable [phone] [facility] Primary Care Provider [phone] Melly Heard MD Primary Care Provider [phone] Encounter Details Date Type Department Care Team (Late st Contact Info) Description 07/11/2024 Orders Only [facility] [address] [place] [address] Provider, MD Vanessa Social History Tobacco Use [...] on filedocumented in this encounter Care Teams Canoe Maker Relationship Specialty Start Date End Date Kita Figueroa MD [address] [place] [address] PCP - General Family Medicine 11/04/12 09/07/24 CenturyVaishali FNP [address] [place] [address] PCP - General Family Medicine 09/08/24 09/08/24 Melly Heard MD [address] [place] [address] PCP - General Family Medicine 09/09/24 Kal Tong MD [address] [email or web address] [address] [place] [address] Nephrology 06/12/22 documented as of this encounter
--- OUTSIDE RECORDS SUMMARY | 2025-02-20 12:15 | XMS_ITS | Clinical Summary ---
Author Organization [employer] Address 75 [facility] 7t [place] [address] Care Team Providers Care Sign Painter Helper Name Role Phone Kal Tong MD Unavailable [phone] Melly Heard MD Primary Care Provider [phone] Allergies No known active allergies Medications * [...] EVERY MORNING 30 tablet 3 5 Active Magnesium 400 MG capsule Take 1 capsule orally daily 90 capsule 2 5 Active Active Problems Problem Noted Date [...] ). Patient care. Caitlyn will benefit from [facility] AUD clinic, OP therapy and engaging in community activities at the [facility]. At this time Caitlyn Saab meets criteria for Visit Diagnoses: Problem List Items Addressed This Visit Other Alcohol dependence ([facility]/HCC) Patient ready to address current needs No Strengths- Caitlyn is open and has several family members that she stays in touch with, She is in there precontemplation stage of change. PLAN: 1. Follow up with [facility]: Recommended for follow-up: 07/05/2023 2. Patient goal [...] Encounters Date Type Department Care Team Description 02/20/2025 9:15 AM EDT Office Visit [facility] CHC MED & PEDS [address] [place] [address] Marsha Grewal MD History of ETOH abuse (Primary Dx) 02/20/2025 Travel 02/17/2025 Telephone [facility] CH[facility] MED & PEDS [address] [place] [address] Melly Heard MD Chart Prep 02/12/2025 Orders Only [facility] MED & PEDS [address] [place] [address] Vanessa Mason MD 02/11/2025 Telephone [facility] MED & PEDS [address] [place] [address] Tima Mckeon MD Appointment Request 02/11/2025 Telephone [facility] CHC MED & PEDS [address] [place] [address] Melly Heard MD ER Follow-up 01/30/2025 Population Health Risk [facility] Department [address] [id number] Provider, Population Health Generic 12/28/2024 Refill [facility] MEDICINE [address] [place] [address] Kita Figueroa MD Uncomplicated alcohol dependence (CMS/HCC) 12/11/2024 Telephone [facility] PEDIATRICS [address] [place] [address] Melly Heard MD Results 12/10/2024 Orders Only [facility] WALK[facility] [address] [place] [address] Roberta, Vaishali, ORCHESTRA TEACHER Osteopenia, unspecified location (Primary Dx) 12/03/2024 Refill [facility] CHC MED & PEDS [address] [place], [place] [id number] Tima Mckeon MD 11/26/2024 9:15 AM EST Office Visit [facility] MED & PEDS [address] [place] [address] Melly Heard MD Uncomplicated alcohol dependence (CMS/HCC) (Primary Dx); Encounter for immunization; Hypothyroidism, unspecified type; Mixed stress and urge urinary incontinence; Other seizures ([facility]); Blurry vision 11/26/2024 Travel 11/25/2024 Telephone [facility] MED & PEDS [address] [place] [address] Melly Heard MD CHART PREP 11/25/2024 Patient Outreach [facility] MEDICINE [address] [place] [address] Melly Heard MD Pre-visit Planning (Annual wellness visit unscheduled) from Last 3 Months Immunizations Name Administration [...] Sign Reading Time Taken Comments Blood Pressure 122/70 02/20/2025 9:31 AM EDT Pulse 72 02/20/2025 9:31 AM EDT Temperature 37.1 ??C (98.7 ??F) 02/20/2025 9:31 AM ED T Respiratory Rate 16 02/20/2025 9:31 AM EDT Oxygen Saturation 97% 11/26/2024 9:28 AM EST Inhaled Oxygen Concentration - - Weight 46.3 kg (102 lb) 02/20/2025 9:31 AM EDT Height 152.4 cm (5') 02/20/2025 9:31 AM EDT Body Mass Index 19.92 02/20/2025 9:31 AM EDT Plan of Treatment Health Maintenance Due Date Last Done Comments CT Colonography 1957 Colonoscopy 1957 Colorectal Cancer Screening 1955 FIT DNA/Cologuard 1957 FIT 1957 FOBT 1957 Sigmoidoscopy 1957 Alcohol/Substance Use Screening 1969 SDOH Screening 08/13/2025 08/13/2024 COVID-19 Vaccine ( season) 2025 12/09/2021, 02/23/2021 Postponed from 07/20/2024 [...] ECG 12-LEAD Routine 02/11/2025 8:49 AM EDT BD DEXA AXIAL Routine 12/02/2024 2:00 PM [...] Recently Relevant to Health Maintenance Results * ECG 12 lead (02/11/2025 8:49 AM EDT) us Historical Provider ECG ORDERABLES Final Res ult * BD DEXA Axial (12/02/2024 2:00 PM EST) Anatomical Region Laterality Modality Body Radiographic Kelly ging 12/02/2024 2:00 PM EST Narrative 12/03/2024 10:00 AM EST ? [facility] ? [address] ?[place], [place] [address] ? Mammography Report ? Signed ? Patient: Ziemba,Caitlyn B ?MR#: [id number] ? : 1955 ?Acct:[id number] ? Age/Sex: 69 / F ?ADM Date: 12/02/24 ? Loc: HO.MAMMO ? Attending Dr: Vaishali Granados ORCHESTRA TEACHER ? Ordering Physician: Vaishali Granados ORCHESTRA TEACHER ?Results: ? Date of Service: 12/02/24 ?Follow Up: ? Procedure(s): XR DEXA axial skeleton ?? Accession Number(s): [id number] ? cc: Melly Heard MD; Vaishali Granados ORCHESTRA TEACHER ? EXAMINATION: ??Dual-Energy X-ray Absorptiometry - Bone Density Study ? HISTORY: ??Estrogen deficiency ? TECHNIQUE: [employer] Dual energy absorptiometry (DEXA) ?? of the [...] DD/ 1400 ? TD/TT: 12/02/24 1415 ? Rotoformer Backtender: ? Procedure Note Ashley, Image - 12/03/2024 [facility] [address] [place], [place] [address] Mammography Report Signed Patient: Caitlyn Saba BMR#: [id number] : 1955cct:[id number] Age/Sex: 69 / FADM Date: 12/02/24 Loc: HO.MAMMO Attending Dr: Vaishali CHAVEZP Ordering Physician: Vaishali Granados FNPResults: Date of Service: 12/02/24Follow Up: Procedure(s): XR DEXA axial skeleton Accession Number(s): [id number] cc: Melly Heard MD; Vaishali Granados [facility] EXAMINATION: Dual-Energy X-ray Absorptiometry - Bone Density Study HISTORY: Estrogen deficiency TECHNIQUE: [employer] Dual energy absorptiometry (DEXA) of the lumbar [...] 12/03/24 0957 DD/ 1400 TD/TT: 12/02/24 1415 Rotoformer Backtender: [facility] ORCHESTRA TEACHER IMG DXA PROCEDURES Final Resu lt * BI Mammogram Screening Tomosynthesis Bilateral (12/02/2024 1:45 PM EST) Anatomical Region Laterality Modality Breast Bilateral Mammography 12/02/2024 1:45 PM EST Narrative 12/10/2024 1:31 PM EST ? [facility] [place] ? [address] ?[place] [address] ? Mammography Report ? Signed ? Patient: Caitlyn Saab ?MR#: [id number] ? : 1955 ?Acct:[id number] ? Age/Sex: 69 / F ?ADM Date: /14/25 ? Loc: HO.MAMMO ? Attending Dr: Vaishali [place] ORCHESTRA TEACHER ? Ordering Physician: [place],Vaishali ORCHESTRA TEACHER ?Results: 1Nega ?? tive ? Date of Service: 12/02/25 ?Follow Up: 1 Year From Orig ?? inal Mammogram ? Procedure(s): MM tomosynthesis screening BI ?? Accession Number(s): [id number] ? cc: Melly Heard MD; Vaishali Granados ORCHESTRA TEACHER ? EXAMINATION: ?? MM SCREENING DIGITAL BREAST [...] ??Jacy Howard DO ??12/10/2024 01:28 PM EST ? Dictated By: ?Jacy Howard DO ? Signed By: ?<Electronically signed by Jacy Howard, DO in OV> ? 12/10/24 1328 ? DD/ 1345 ? TD/TT: 12/02/24 1418 ? Rotoformer Backtender: ? Procedure Note Ashley, Gretel - 12/10/2024 [facility] [address] [place] [address] Dr. [place], [place] [address] Mammography Report Signed Patient: Caitlyn Saab BMR#: [id number] : 7Acct:[id number] Age/Sex: 69 / FADM Date: 12/02/24 Loc: IDA.MAMMO Attending Dr: Vaishali Granados ORCHESTRA TEACHER Ordering Physician: Vaishali Granados FNPResults: 1Nega tive Date of Service: 12/02/24Follow Up: 1 Year From Orig inal Mammogram Procedure(s): MM tomosynthesis screening BI Accession Number(s): [id number] cc: Melly Heard MD; [place] ORCHESTRA TEACHER EXAMINATION: MM SCREENING DIGITAL BREAST TOMOSYNTHESIS, BILATERAL [...] by: Jacy Howard DO 12/10/2024 01:28 PM EST Dictated By: Jacy Howard DO Signed By: <Electronically signed by Jacy Howard DO in OV> 12/10/24 1328 DD/ 1345 TD/TT: 12/02/24 1418 Rotoformer Backtender: [facility] ORCHESTRA TEACHER IMG BI PROCEDURES Final Resul t * (ABNORMAL) Lipid Panel, Standard (09/08/2024 12:21 PM EDT) Triglycerides 65 <150 mg/dL [facility] Comment:Desirable Triglyceri de: less than 150 mg/dLBorderline High Triglyceride 150-199 mg/dLHigh Triglyceride: 200-499 mg/dLVery High Triglyceride: greater than or equal to 5OO mg/dL Cholesterol 196 <200 mg/dL [facility] Comment:Desirable Cholestero l: less than 200 mg/dLBorderline High Cholesterol: 200-239 mg/dLHigh Cholesterol: greater than 239 mg/dL LDL Cholesterol Calculated 123(H) <100 mg/dL [facility] Comment:Desirable LDL: less than 100 mg/dLNear Optimal/Above Optimal LDL: 110- 129 mg/dLBorderline High LDL: 130-159 mg/dLHigh LDL: 160-189 mg/dLVery High LDL: greater than or equal to 190 mg/dL HDL Cholesterol 60 >40 mg/dL [facility] Comment:Desirable HDL: great er than 40 mg/dL Note: This HDL assay may give artificially low results in patients with liver disease. Blood Venous blood specimen / Unknown 09/08/2024 12:21 PM EDT 09/08/2024 1:37 PM EDT [facility] ORCHESTRA TEACHER LAB BLOOD ORDERABLES Final Re sult [facility] [address] [place] [address] [phone] * HEPATITIS C AB W/REFL TO HCV RNA, QN, PCR (11/30/2021 10:08 AM EST) HEPATITIS C ANTIBODY NON-REACT ERICA NON-REACT ERICA [facility] INDEX 0.01 <1.00 [facility] Comment: ?? HCV antibody was non-reactive. There is no laboratory ?? evidence of HCV infection. ?? In most cases, no further action is required. However, if recent HCV exposure is suspected, a test for HCV RNA (test code 94344) is suggested. ?? For additional information please refer to http://education.[employer] Interactive.ParasitX/faq/AHU95x6 (This link is being provided for informational/ educational purposes only.) ?? 11/30/2021 10:0 8 AM EST Marco Antonio Novak MD HISTORICAL/NON ORDERABLE LABS Final Result [facility] [address] [place] [address] from Last 3 Months or Most Recently Relevant to Health Maintenance Insurance [place] [id number] [facility] Care Teams Sign Painter Helper Relationship Specialty Start Date End Date Melly Heard MD [address] [place] [address] PCP - General Family Medicine 09/09/24 Kal Tong MD 100 [address] [facility] 200 [place] [address] Nephrology 06/12/22
--- OUTSIDE RECORDS SUMMARY | 2025-02-20 12:15 | XMS_ITS | Encounter Summary ---
Author Organization [employer] Address 75 [facility] 7t [place] [address] Care Team Providers Care Acupuncturist Name Role Phone Kal Tong MD Unavailable [phone] Melly Heard MD Primary Care Provider [phone] Encounter Details Date Type Department Care Team ([facility] Contact Info) Description 02/20/2025 9:15 AM EDT Office Visit [facility] MED & PEDS [address] [place] [address] Marsha Grewal MD [address] [place] [address] History of ETOH abuse (Primary Dx) Social History Tobacco Use Types Packs/Day Years [...] AM EDT documented as of this encounter Last Filed Vital Signs Vital Sign Reading Time Taken Comments Blood Pressure 122/70 02/20/2025 9:31 AM EDT Pulse 72 02/20/2025 9:31 AM EDT Temperature 37.1 ??C (98.7 ??F) 02/20/2025 9:31 AM ED T Respiratory Rate 16 02/20/2025 9:31 AM EDT Oxygen Saturation - - Inhaled Oxygen Concentration - - Weight 46.3 kg (102 lb) 02/20/2025 9:31 AM EDT Height 152.4 cm (5') 02/20/2025 9:31 AM EDT Body Mass Index 19.92 02/20/2025 9:31 AM EDT documented in this encounter Plan of Treatment Scheduled Orders Name Type Priority Associated Diagnoses Orde r Schedule Magnesium Lab Routine History of ETOH abuse Expected: 02/20/2025, Expires: 02/20/2026 Vitamin B12/Folate, Serum Panel Lab Routine History of ETOH abuse Expected: 02/20/2025, Expires: 02/20/2026 Hepatic Function Panel Lab Routine History of ETOH abuse Expected: 02/20/2025 (Approximate), Expires: 02/20/2026 CBC auto differential Lab Routine History of ETOH abuse Expected: 02/20/2025 (Approximate), Expires: 02/20/2026 documented as of this encounter Visit Diagnoses Diagnosis History of ETOH abuse- Primary documented in this encounter Additional Health Concerns Assessment Noted Time PHQ-9 Depression Total Score: 4 11/26/19 25 11:10 AM EST documented as of this encounter Care Teams Acupuncturist Relationship Specialty Start Date End Date Melly Heard MD [address] [place] [address] PCP - General Family Medicine 09/09/24 Kal Tong MD 100 [facility] 200 [place] [address] Nephrology 06/12/22 documented as of this encounter
--- OUTSIDE RECORDS SUMMARY | 2025-02-20 12:15 | XMS_ITS | Encounter Summary ---
Author Organization [employer] Address 75 [facility] 7t [place] [address] Care Team Providers Care Yacht Rigger Name Role Phone Kal Tong MD Unavailable [phone] Melly Heard MD Primary Care Provider [phone] Reason for Visit * Reason Comments Med Refill Encounter Details Date Type Department Care Team ([facility] Contact Info) Description 12/03/2024 Refill [facility] CHC MED & PEDS [address] [place] [address] Tima Mckeon MD [address] [place] [address] Social History Tobacco Use Types Packs/Day Years [...] documented as of this encounter Care Teams Yacht Rigger Relationship Specialty Start Date End Date Melly Heard MD [address] [place] [address] PCP - General Family Medicine 09/09/24 Kal Tong MD 100 [facility] 200 [place] [address] Nephrology 06/12/22 documented as of this encounter
--- OUTSIDE RECORDS SUMMARY | 2025-02-20 12:15 | XMS_ITS | Encounter Summary ---
Author Organization [employer] Address 75 [facility] 7t [place] [address] Care Team Providers Care Hostess Party Sales Representative Name Role Phone Kita Figueroa MD Primary Care Provider [phone] Kal Tong MD Unavailable [phone] [facility] Primary Care Provider [phone] Melly Heard MD Primary Care Provider [phone] Encounter Details Date Type Department Care Team (Late st Contact Info) Description 11/16/2023 Orders Only [facility] CHC MED & PEDS [address] [place] [address] Tima Mckeon MD 505 [place] [address] Social History Tobacco Use Types Packs/Day Years [...] on filedocumented in this encounter Care Teams Hostess Party Sales Representative Relationship Specialty Start Date End Date Kita Figueroa MD 230 [place] [address] PCP - General Family Medicine 11/04/12 09/07/24 [facility] [address] [place] [address] PCP - General Family Medicine 09/08/24 09/08/24 Melly Heard MD [address] [place] [address] PCP - General Family Medicine 09/09/24 Kal Tong MD [address] [facility] [address] [address] Nephrology 06/12/22 documented as of this encounter
--- OUTSIDE RECORDS SUMMARY | 2025-02-20 12:15 | XMS_ITS | Encounter Summary ---
Author Organization [employer] Address 75 [facility] 7t [place] [address] Care Team Providers Care Enterprise Sales Person Name Role Phone Kal Tong MD Unavailable [phone] Melly Heard MD Primary Care Provider [phone] Reason for Visit * Reason Onset Date Comments Chart Prep 02/17/2025 Encounter Details Date Type Department Care Team ([facility] st Contact Info) Description 02/17/2025 Telephone [facility] CHC MED & PEDS [address] [place] [address] Melly Heard MD [address] [place] [address] Chart Prep Social History Tobacco Use Types Packs/Day Years [...] encounter Miscellaneous Notes * Telephone Encounter - Shakila Salcedo MA - 02/17/2025 3:43 PM EDT Chart Prep Labs: not applicable Images: not applicable Vaccines due: no updates Referrals: appointment pending Screenings: colonoscopy Overdue care gaps: SBIRT and Tobacco documented in this encounter Plan of Treatment Not on file documented as of this encounter Visit Diagnoses Not on filedocumented in this encounter Additional Health Concerns Assessment Noted Time PHQ-9 Depression Total Score: 4 11/26/19 25 11:10 AM EST documented as of this encounter Care Teams Enterprise Sales Person Relationship Specialty Start Date End Date Melly Heard MD [address] [place] [address] PCP - General Family Medicine 09/09/24 Kal Tong MD [address] [facility] 200 [place] [address] Nephrology 06/12/22 documented as of this encounter
--- OUTSIDE RECORDS SUMMARY | 2025-02-20 12:15 | XMS_ITS | Encounter Summary ---
Author Organization [employer] Address 75 [facility] 7t [place] [address] Care Team Providers Care Customer Relations Representative Name Role Phone Kal Tong MD Unavailable [phone] Melly Heard MD Primary Care Provider [phone] Encounter Details Date Type Department Care Team (Latest Contact Info) Description 02/20/2025 Travel Social History Tobacco Use Types Packs/Day Years [...] documented as of this encounter Care Teams Customer Relations Representative Relationship Specialty Start Date End Date Melly Heard MD [address] [place] [address] PCP - General Family Medicine 09/09/24 Kal Tong MD 100 [facility] 200 [place] [address] Nephrology 06/12/22 documented as of this encounter
--- OUTSIDE RECORDS SUMMARY | 2025-02-20 12:15 | XMS_ITS | Encounter Summary ---
Author Organization [employer] Address [address] [facility] [address] 7t [place] [address] Care Team Providers Care Agricultural Plow Operator Name Role Phone Kita Figueroa MD Primary Care Provider [phone] Kal Tong MD Unavailable [phone] [facility] Primary Care Provider [phone] eMlly Heard MD Primary Care Provider [phone] Reason for Visit * Reason Onset Date Comments Call Back Request 11/13/2023 Encounter Details Date Type Department Care Team ([facility] st Contact Info) Description 11/13/2023 Telephone [facility] CHC MED & PEDS [address] [place], [place] [phone] Kita Figueroa MD 505 [place], [place] [phone] Call Back Request Social History Tobacco Use [...] the past 12 months, has t he [employer], gas, oil or water [employer] threatened to shut off services in your [...] PM EST Placed call to Evie at [facility] regarding message below. Evie informed of PCP concerns. [facility] will make a note of this and f/u as needed. * Telephone Encounter - Kita Figueroa MD - 11/13/2023 9:23 PM EST Pt is a alcoholic and is non complaint with meds and all medical advices * Telephone Encounter - Juan Salcedo - 11/13/2023 3:40 PM EST Tc from Evie working with [facility] calling [facility] about any medical concerns pcp may have and if pt is medically compliant.Please contact Evie at [phone] ujo [phone]. documented in this encounter Plan of Treatment Not on file documented as of this encounter Visit Diagnoses Not on filedocumented in this encounter Care Teams Agricultural Plow Operator Relationship Specialty Start Date End Date Kita Figueroa MD [address] [place] [address] PCP - General Family Medicine 11/04/12 09/07/24 [facility] [address] [place] [address] PCP - General Family Medicine 09/08/24 09/08/24 Melly Heard MD [address] [place] [address] PCP - General Family Medicine 09/09/24 Kal Tong MD [address] [address] Nephrology 06/12/22 documented as of this encounter
--- OUTSIDE RECORDS SUMMARY | 2025-02-20 12:15 | XMS_ITS | Encounter Summary ---
Author Organization [employer] Address [address] [facility] [address] 7t [place] [address] Care Team Providers Care An Employee Sponsor Or Advocate And Name Role Phone Kita Figueroa MD Primary Care Provider [phone] Kal Tong MD Unavailable [phone] [facility] Primary Care Provider [phone] Melly Heard MD Primary Care Provider [phone] Reason for Visit * Reason Comments Med Refill Encounter Details Date Type Department Care Team (Late st Contact Info) Description 11/15/2023 Refill [facility] MEDICINE [address] [place] [address] Kita Figueroa MD [address] [place], [place] [phone] Uncomplicated alcohol dependence (CMS/HCC) Social History Tobacco [...] (CMS/HCC) documented in this encounter Care Teams An Employee Sponsor Or Advocate And Relationship Specialty Start Date End Date Kita Figueroa MD [address] [place] [address] PCP - General Family Medicine 11/04/12 09/07/24 CrockettVaishali FNP [address] [place] [address] PCP - General Family Medicine 09/08/24 09/08/24 Melly Heard MD [address] [place] [address] PCP - General Family Medicine 09/09/24 Kal Tong MD 100 [facility] 200 [place] [address] Nephrology 06/12/22 documented as of this encounter
[2025-02-20 14:06] LABS: MANUAL DIFF FLAG NO
[2025-02-20 14:11] LABS: Basophils Absolute Auto 0.1 X10*3/uL (0.0-0.2); Basophils Percent Auto 0.9 % (0-2); Eosinophils Absolute Auto 0.1 X10*3/uL (0.0-0.4); Eosinophils Percent Auto 0.8 % (0-4); Hematocrit 35.1 % (37.0-47.0); Imm Gran Abs Auto 0.03 X10*3/uL (0.00-0.03); Imm Gran Pct Auto 0.3 % (0.0-0.4); Lymphocytes Absolute Auto 2.1 X10*3/uL (1.2-4.9); Lymphocytes Percent Auto 22.3 % (20-40); Mean Corpuscular HGB Conc 31.3 g/dl (31.0-35.0); Mean Corpuscular Hemoglobin 28.2 pg (27.0-33.0); Mean Platelet Volume 9.9 fL (9.4-12.3); Monocytes Absolute Auto 0.6 X10*3/uL (0.1-1.2); Monocytes Percent Auto 6.1 % (2-11); Neutrophils Absolute Auto 6.4 x10*3/uL (2.0-8.3); Neutrophils Percent Auto 69.6 % (45-73); Platelet Count 407 X10*3/uL (160-400); Red Cell Distribution Width 13.3 % (11.0-16.0); White Blood Count 9.2 X10*3/uL (4.8-10.8)
[2025-02-20 14:38] LABS: Alanine Aminotransferase 18 U/L (0-31); Albumin Level 4.2 g/dL (3.5-5.0); Alkaline Phosphatase 83 U/L (39-117); Aspartate Amino Transferase 35 U/L (5-31); Bilirubin Direct 0.2 mg/dL (0.0-0.5); Bilirubin Total 0.5 mg/dL (0.0-1.0); Magnesium 2.1 mg/dL (1.6-2.6); Total Protein 6.9 g/dL (6.5-8.0)
[2025-02-20 15:22] LABS: Folate 10.2 ng/mL (> or = 4.0); Vitamin B12 396 pg/mL (200-900)
== END 2025-02-20 10:41 | disposition home or self-care (01) ==
LOC: HO.CHCLDS 10:40
PROVIDERS: Visit Provider Pediatrics
DX: F10.11 Alcohol abuse, in remission (principal)
CPT/HCPCS: 36415; 80076; 82607; 82746; 83735; 85025

== ENCOUNTER 2025-05-07 09:33 | Outpatient (REF) | payer MEDICARE, MEDICAID, SELFPAY ==
--- NOTE | ~2025-05-07 | XR_ITS ---
CLINICAL HISTORY: LEG PAIN 3 view left knee Comparison: None provided Findings: Bones intact. No dislocations. No significant loss of joint space, osteophytes, or erosions. No joint effusion. No radiopaque foreign body. IMPRESSION: 1. No acute findings. This document has been electronically signed by: Warren Zayas MD on 05/08/2025 08:57:07
--- OUTSIDE RECORDS SUMMARY | 2025-05-07 10:25 | XMS_ITS | Encounter Summary ---
Author Organization [employer] Address [address] [facility] 7t [place] [address] Care Team Providers Care Miller Apprentice Name Role Phone Kal Tong MD Unavailable [phone] Melly Heard MD Primary Care Provider [phone] Reason for Visit * Reason Comments Med Refill Encounter Details Date Type Department Care Team ([facility] Contact Info) Description 12/03/2024 Refill [facility] CHC MED & PEDS [address] [place] [address] Tima Mckeon MD [address] [place] [address] Social History Tobacco Use Types Packs/Day Years [...] as of this encounter Plan of Treatment Upcoming Encounters Date Type Department Care Team (Late st Contact Info) Description 05/21/2025 11:15 AM EDT Office Visit [facility] CH[facility] MED & PEDS [address] [place] [address] Melly Heard MD [address] [place] [address] 07/27/2025 1:45 PM EDT Office Visit [facility] OPTOMETRY [address] [place] [address] TarkaKetty, OD [address] [place] [address] documented as of this encounter Visit Diagnoses Not on filedocumented in this encounter Additional Health Concerns Assessment Noted Time PHQ-9 Depression Total Score: 4 11/26/19 25 11:10 AM EST documented as of this encounter Care Teams Miller Apprentice Relationship Specialty Start Date End Date Melly Heard MD [address] [place] [address] PCP - General Family Medicine 09/09/24 Kal Tong MD [address] [facility] [address] [place] [address] Nephrology 06/12/22 documented as of this encounter
== END 2025-05-07 09:34 | disposition home or self-care (01) ==
LOC: HO.XRAY 09:33
PROVIDERS: PCP Family Medicine; Visit Provider Psychiatry & Neurology Neurology
DX: M79.605 Pain in left leg (principal)
CPT/HCPCS: 73562

== ENCOUNTER → 2025-05-07 10:10 | Outpatient (BNV) | payer MEDICARE, MEDICAID, SELFPAY | PROVIDERS: PCP Family Medicine; Visit Provider Specialist | DX: M25.562 Pain in left knee (principal) | CPT/HCPCS: 73562 ==

== ENCOUNTER 2025-06-10 13:26 | Outpatient (REF) | payer MEDICARE, MEDICAID, SELFPAY ==
--- NOTE | 2025-06-10 | EMG_ITS ---
Please see the attached neurophysiology report MTDD
--- OUTSIDE RECORDS SUMMARY | 2025-06-10 13:59 | XMS_ITS | Clinical Summary ---
Author Organization [facility] Address [address] [place] [address] Phone Care Team Providers Care Warehouse Production Worker Name Role Phone Melly Heard MD Primary Care Provider [phone] Allergies No known active allergies Medications methocarbamoL (ROBAXIN) 750 mg tablet Take 1 tablet (750 mg total) by mouth 4 (four) times a day if needed for muscle spasms for up to 5 days. 20 each 02/11/2025 Active Social History Tobacco Use Types Packs/Day Years [...] 67 02/11/2025 2:43 AM EDT Temperature 36.5 C (97.7 F) 02/11/2025 2:43 AM EDT Respiratory Rate 18 02/11/2025 2:43 AM EDT [...] Influencers of Health Screening 10/23/2022 COVID-19 Vaccine (3 - season) 2024 12/09/2021, 02/23/2021 Depression Screening 11/19/2024 Influenza Vaccine (#1) 2025 , 12/14/2021, 08/19/2020, Additional history exists Hypertension/CHF/CAD Annual BMP Blood Test 02/10/2026 02/10/2025 DTaP,Tdap,and Td Vaccines (7 - Td or Tdap) 06/07/2026 06/07/2016, 10/22/2015, 01/23/2015, Additional history exists Cholesterol Screening (Lipid Panel) 09/08/2029 09/08/2024 RSV Immunization Adult Patients (1 - 1-dose 75+ series) 2032 Osteoporosis Screening (Bone Density Screening) 12/02/2034 12/02/2024 Hepatitis A Vaccines Completed 06/27/2022, 12/14/19 Hepatitis B Vaccines Completed 06/27/2022, 04/26/2022, 12/14/2021 HIB Vaccines Aged Out No longer eligi [...] age to complete this topic Meningococcal B Vaccine Aged Out No l onger eligible based on patient's age to complete this topic RSV Immunization Patients Under 20 months Aged Out No longer eligible based on patient's age to complete this topic Varicella Vaccines Aged Out No longer eligible based on patient's age to complete this topic Procedures Procedure Name Priority Date/Time Associated Diagnosis Comments BASIC METABOLIC PANEL STAT 02/10/2025 11:58 PM EDT from Last 3 Months or Most Recently Relevant to Health Maintenance Results * (ABNORMAL) Basic metabolic panel (02/10/2025 11:58 PM EDT) Sodium 140 133 - 145 mmol/L LAB CHEMISTRY METHOD 02/11/2025 12:43 AM [facility] Potassium 4.5 3.5 - 5.5 mmol/L LAB CHEMISTRY METHOD 02/11/2025 12:43 AM [facility] Chloride 109 96 - 110 mmol/L LAB CHEMISTRY METHOD 02/11/2025 12:43 AM [facility] CO2 27 21 - 32 mmol/L LAB CHEMISTRY METHOD 02/11/2025 12:43 AM [facility] Anion Gap 4 3 - 11 LAB CHEMISTRY METHOD 02/11/2025 12:43 AM [facility] Glucose 108(H) 70 - 100 mg/dL LAB CHEMISTRY METHOD 02/11/2025 12:43 AM [facility] BUN 26(H) 5 - 25 mg/dL LAB CHEMISTRY METHOD 02/11/2025 12:43 AM [facility] Creatinine 0.78 0.50 - 1.10 mg/dL LAB CHEMISTRY METHOD 02/11/2025 12:43 AM [facility] eGFR 83 >=60 mL/min/1. 73m2 LAB CHEMISTRY METHOD 02/11/2025 12:43 AM [facility] Comment:Calculation based on the Chronic Kidney Disease Epidemiology Collaboration (CKD-EPI) equation refit without adjustment for race. BUN/Creatinine Ratio 33.3 LAB CHEMISTRY METHOD 02/11/2025 12:43 AM [facility] Calcium 9.2 8.5 - 10.5 mg/dL LAB CHEMISTRY METHOD 02/11/2025 12:43 AM EDT [facility] Blood Venous blood specimen / Unknown Venipuncture / Unknown 02/10/2025 11:58 PM EDT 02/11/2025 12:06 AM EDT us Lazarus REYES LAB BLOOD ORDERABLES Lindsay eckert Result [facility] [address] [place] [address], from Last 3 Months or Most Recently Relevant to Health Maintenance Insurance MEDICARE MEDICAID - [place] Advance Directives Documents on File Type Date Recorded Patient Top Polisher Expl anation Health Care Decision (hx) 03/28/2023 [...] currently active code status orders. Care Teams Warehouse Production Worker Relationship Specialty Start Date End Date Melly Heard MD [address] [place] [address] PCP - General Family Medicine 02/11/25
--- OUTSIDE RECORDS SUMMARY | 2025-06-10 13:59 | XMS_ITS | Encounter Summary ---
Author Organization [facility] Address [address] [place] [address] Phone Care Team Providers Care Rope Twisting Machine Operator Name Role Phone Unknown, Unknown Primary Care Provider Kita Deleon MD Primary Care Provider [phone] Encounter Details Date Type Department Care Team (Late st Contact Info) Description 07/05/2019 Procedure [facility] [address] [place] [address] Social History Tobacco Use Types Packs/Day Years Used Date Smoking Tobacco: Never Assessed Comments Unknown Sex and Gender Information Value Date Recorded Sex Assigned at Not on file Legal Sex Female 1:41 PM EDT Gender Identity Not on file Sexual Orientation Not on file documented as of this encounter Plan of Treatment Not on file documented as of this encounter Visit Diagnoses Not on filedocumented in this encounter Care Teams Rope Twisting Machine Operator Relationship Specialty Start Date End Date Unknown, Unknown, PCP - General 07/04/19 07/09/19 Kita Figueroa MD [address] [place] [address] PCP - General Family Medicine 07/10/19 documented as of this encounter Additional Source Comments The information contained in this document represents components of the legal health record. It is not the complete legal health record.[facility]
--- OUTSIDE RECORDS SUMMARY | 2025-06-10 13:59 | XMS_ITS | Encounter Summary ---
Author Organization [employer] Address [address] [facility] 7t [place] [address] Care Team Providers Care Oriental Medicine Practitioner Name Role Phone Kal Tong MD Unavailable [phone] Melly Heard MD Primary Care Provider [phone] Reason for Visit * Reason Comments Med Refill Encounter Details Date Type Department Care Team ([facility] Contact Info) Description 12/03/2024 Refill [facility] CHC MED & PEDS [address] [place] [address] Tima Mckeon MD [address] [place] [address] Social History Tobacco Use Types Packs/Day Years [...] your housing situation today? I have erendira riedr 08/13/[address] you li [...] Care Team (Late st Contact Info) Description 07/27/2025 1:45 PM EDT Office Visit [facility] OPTOMETRY [address] [place] [address] Tarsuma Ketty, OD [address] [place] [address] documented as of this encounter Visit Diagnoses Not on filedocumented in this encounter Additional Health Concerns Assessment Noted Time PHQ-9 Depression Total Score: 4 11/26/19 25 11:10 AM EST documented as of this encounter Care Teams Oriental Medicine Practitioner Relationship Specialty Start Date End Date Melly Heard MD [address] [place] [address] PCP - General Family Medicine 09/09/24 Kal Tong MD [address] [facility] [address] [place] [id number] Nephrology 06/12/22 documented as of this encounter
--- OUTSIDE RECORDS SUMMARY | 2025-06-10 13:59 | XMS_ITS | Clinical Summary ---
Author Organization [facility] Address [address] [address] Care Team Providers Care Squeegee Operator Name Role Phone Melly Heard MD Primary Care Provider [phone] Allergies No known active allergies Medications thiamine [...] Colorectal Cancer Screening: Sigmoidoscopy 2006 Pneumococcal Vaccine: 50+ Years (2 of 2 - PCV) 10/03/2015 10/03/2014 Influenza Vaccine (#1) 2025 2, 08/19/2020, 08/10/2018, Additional history exists Pneumococcal Vaccine: Peds (0 to 5 Years) and At-Risk Patients (6 to 49 Years) Discontinued 10/03/2014 Hepatitis B Vaccine Aged Out 06/27/2022, 04/26/2022, 12/14/2021 No longer eligible based on patient's age to complete this topic Insurance Medicaid [place] Care Teams Squeegee Operator Relationship Specialty Start Date End Date Melly Heard MD PCP - General Family Medicine 05/08/22
== END 2025-06-10 13:27 | disposition home or self-care (01) ==
LOC: HO.NEURO 13:26
PROVIDERS: PCP Family Medicine; Visit Provider Psychiatry & Neurology Neurology
DX: M79.605 Pain in left leg (principal)
CPT/HCPCS: 95886; 95909

== ENCOUNTER → 2025-06-10 13:44 | Outpatient (BNV) | payer MEDICARE, MEDICAID, SELFPAY | PROVIDERS: PCP Family Medicine; Visit Provider Psychiatry & Neurology Neurology | DX: G62.89 Other specified polyneuropathies (principal) | CPT/HCPCS: 95886; 95909 ==

== ENCOUNTER 2025-06-22 17:32 | Outpatient (REF) | payer MEDICARE, MEDICAID, SELFPAY ==
[2025-06-22 17:39] LABS: Appearance Urine Cloudy; Glucose Urine UA Negative (Negative); PH 6.0 (5.0-9.0); Specific Gravity - Urine 1.010 (1.005-1.025); UMIC TRIGGER UACC YES
[2025-06-22 18:06] LABS: UACC Culture Trigger YES
== END 2025-06-22 17:33 | disposition home or self-care (01) ==
LOC: HO.HHCLNP 17:32
PROVIDERS: Visit Provider Family Medicine
DX: N39.46 Mixed incontinence (principal)
CPT/HCPCS: 81001; 87086

== ENCOUNTER 2025-06-25 13:31 | Outpatient (AMB) | payer MEDICARE, MEDICAID, SELFPAY ==
--- NOTE | 2025-06-25 13:33 | MHC.OFFVIS ---
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 This time she was here for left leg pain. It was going on for a few months. It was there all the time. There was no trigger or injury. It was affecting her sleep. It was in distal part of left thigh, the knee joint and the area below. It was like a tooth ache. There was no back pain. Left leg was also getting weak. EMG/NCS revealed mild axonal SM PN. Knee xray was ok. [facility] Medical History (Updated 06/25/25 @ 13:39 by Shelby Howard MD) Alcoholism Alcoholic dementia Family History (Updated 06/02/25 @ 09:27 by Andrade Carpenter [facility]) Father COPD (chronic obstructive pulmonary disease) Mother Hypertension Angina at rest Social History Patient Tobacco Use Status: Never used Tobacco Physical Exam Neuro Other: Mental Status: Alert and oriented to person, place, and time. Normal attention. Normal spontaneous speech, fluency, and comprehension. Cranial Nerves: CN II: Visual peterson full to confrontation, visual acuity intact. CN III, IV, : Pupils equal, round, reactive to light and accommodation. Extraocular movements are normal. CN V: Facial sensation is normal. CN VII: Facial movements symmetrical. CN VIII: Hearing intact to bedside conversation is normal. CN IX, X: Palate elevates symmetrically. CN XI: Shoulder shrug and head turn symmetrical. CN XII: Tongue midline without atrophy or fasciculations. Extrapyramidal: Full facial expressions and blinking. No rigidity. Movements are appropriate with no tremor or abnormality. Speech: Normal; no dysarthria or tremor. Assessment & Plan Assessment & Plan (1) Left thigh pain: Comment: EMG/NCS LEs at off in May 2025: Mild axonal SM PN [place] [facility] [place] brain WO at [facility] in 2023: Mild diff atrophy, mild MVD Code(s): M79.652 - Pain in left thigh Category: Medical Plan Impression: Leg pain, probably musculoskelatal in nature. She was seeing [place] [facility] and apparently was schudled to have hip surgery Rec: PRN f/u Coding Level of Care Code Est Pt Level 4 (22228) Diagnoses Left thigh pain M79.652
--- OUTSIDE RECORDS SUMMARY | 2025-06-25 13:34 | XMS_ITS | Encounter Summary ---
Author Organization [employer] Address [address] [facility] 7t [place] [address] Care Team Providers Care Environmental Field Team Member Name Role Phone Kal Tong MD Unavailable [phone] Melly Heard MD Primary Care Provider [phone] Reason for Visit * Reason Comments Med Refill Encounter Details Date Type Department Care Team ([facility] Contact Info) Description 12/03/[address] [facility] CHC MED & PEDS [address] [place] [address] Tima Mckeon MD [address] [place] [address] Social History Tobacco Use Types Packs/Day Years [...] Description 07/27/2025 1:45 PM EDT Office Visit [facility] OPTOMETRY [address] [place] [address] Tarka Ketty, OD [address] [place] [address] 08/07/2025 8:45 AM EDT Office Visit [facility] CHC MED & PEDS [address] [place] [address] Melly Heard MD [address] [place] [address] documented as of this encounter Visit Diagnoses Not on filedocumented in this encounter Additional Health Concerns Assessment Noted Time PHQ-9 Depression Total Score: 4 11/26/19 25 11:10 AM EST documented as of this encounter Care Teams Environmental Field Team Member Relationship Specialty Start Date End Date Melly Heard MD [address] [place] [address] PCP - General Family Medicine 09/09/24 Kal Tong MD [address] [facility] [address] [place] [address] Nephrology 06/12/22 documented as of this encounter
--- OUTSIDE RECORDS SUMMARY | 2025-06-25 13:34 | XMS_ITS | Clinical Summary ---
Author Organization [facility] Address [address] [place] [address] Phone Care Team Providers Care Hospice Clinical Supervisor Name Role Phone Melly Heard MD Primary Care Provider [phone] Allergies No known active allergies Medications methocarbamoL [...] mmol/L LAB CHEMISTRY METHOD 02/11/2025 12:43 AM [facility] Potassium 4.5 3.5 - 5.5 mmol/L LAB CHEMISTRY METHOD 02/11/2025 12:43 AM [facility] Chloride 109 96 - 110 mmol/L LAB CHEMISTRY METHOD 02/11/2025 12:43 AM [facility] CO2 27 21 - 32 mmol/L LAB CHEMISTRY METHOD 02/11/2025 12:43 AM [facility] Anion Gap 4 3 - 11 LAB CHEMISTRY METHOD 02/11/2025 12:43 AM [facility] Glucose 108(H) 70 - 100 mg/dL LAB CHEMISTRY METHOD 02/11/2025 12:43 AM [facility] BUN 26(H) 5 - 25 mg/dL LAB CHEMISTRY METHOD 02/11/2025 12:43 AM [facility] Creatinine 0.78 0.50 - 1.10 mg/dL LAB CHEMISTRY METHOD 02/11/2025 12:43 AM [facility] eGFR 83 >=60 mL/min/1. 73m2 LAB CHEMISTRY METHOD 02/11/2025 12:43 AM [facility] Comment:Calculation based on the Chronic Kidney Disease Epidemiology Collaboration (CKD-EPI) equation refit without adjustment for race. BUN/Creatinine Ratio 33.3 LAB CHEMISTRY METHOD 02/11/2025 12:43 AM [facility] Calcium 9.2 8.5 - 10.5 mg/dL LAB CHEMISTRY METHOD 02/11/2025 12:43 AM EDT [facility] Blood Venous blood specimen / Unknown Venipuncture / Unknown 02/10/2025 11:58 PM EDT 02/11/2025 12:06 AM EDT us Lazarus REYES LAB BLOOD ORDERABLES Lindsay eckert Result [facility] [address] [place] [address], from Last 3 Months or Most Recently Relevant to Health Maintenance Insurance MEDICARE MEDICAID - [place] Advance Directives Documents on File Type Date Recorded Patient Rn Hedis Expl anation Health Care Decision (hx) 03/28/2023 [...] currently active code status orders. Care Teams Hospice Clinical Supervisor Relationship Specialty Start Date End Date Melly Heard MD [address] [place] [address] PCP - General Family Medicine 02/11/25
--- OUTSIDE RECORDS SUMMARY | 2025-06-25 13:34 | XMS_ITS | Encounter Summary ---
Author Organization [facility] Address [address] [place] [address] Phone Care Team Providers Care Contract Negotiation Manager Name Role Phone Unknown, Unknown Primary Care Provider Kita Deleon MD Primary Care Provider [phone] Encounter Details Date Type Department Care Team (Late st Contact Info) Description 07/05/2019 Procedure Pass [facility] [address] [place] [address] Social History Tobacco Use Types Packs/Day Years [...] on filedocumented in this encounter Care Teams Contract Negotiation Manager Relationship Specialty Start Date End Date Unknown, Unknown, PCP - General 07/04/19 07/09/19 Kita Figueroa MD [address] [place] [address] PCP - General Family Medicine 07/10/19 documented as of this encounter Additional Source Comments The information contained in this document represents components of the legal health record. It is not the complete legal health record.[facility]
--- OUTSIDE RECORDS SUMMARY | 2025-06-25 13:34 | XMS_ITS | Clinical Summary ---
Author Organization [facility] Facility Address [address] [address] Care Team Providers Care Consumer Loan Processor Name Role Phone Melly Heard MD Primary Care Provider Allergies No known active allergies Medications thiamine [...] age to complete this topic Insurance [place] Medicare Care Teams Consumer Loan Processor Relationship Specialty Start Date End Date Melly Heard MD PCP - General Family Medicine 05/08/22
== END 2025-06-25 15:11 | disposition home or self-care (01) ==
LOC: HO.HSM 13:31
PROVIDERS: PCP Family Medicine; Visit Provider Psychiatry & Neurology Neurology
DX: M79.652 Pain in left thigh (principal)
CPT/HCPCS: 99214

== ENCOUNTER → 2025-06-25 13:31 | Outpatient (BNVA) | payer MEDICARE, MEDICAID, SELFPAY | PROVIDERS: PCP Family Medicine; Visit Provider Psychiatry & Neurology Neurology | DX: M79.652 Pain in left thigh (principal) | CPT/HCPCS: 99212 ==

== ENCOUNTER 2025-08-27 10:57 | Outpatient (AMB) | payer MEDICARE, MEDICAID, SELFPAY ==
--- NOTE | 2025-08-27 11:07 | A.OFFVIS_ITS ---
Intake Visit Reasons: incontinence Intake Note: patient presents today for: new pt incontinence urology medications: none blood thinners: none smoker: no today's PVR: 93mls [employer] Required: No Accompanied by: Spouse Allergies No Known Allergies (No Known Allergies*) Allergy (Verified 08/27/25 11:48) Medication List - Last Reconciled 08/27/25 by KASIE Worley clonidine HCl mg PO gabapentin 100 mg PO TID lorazepam 2 mg orally before MRI, one dose PRN; 1 day lorazepam 2 mg orally before MRI PRN; magnesium oxide 400 mg PO DAILY melatonin 10 mg PO BEDTIME naproxen (Naprosyn) 500 mg PO BID HPI Comments Details: Caitlyn is a 70-year-old female patient of Dr. Heard who was accompanied by her significant other at today's office visit. She has a past medical history of alcoholism and alcohol dementia. She presents to the office today as a new patient for incontinence. In discussion with the patient today she denies any bothersome urinary issues or concerns. She denies urinary urgency, urinary frequency, incontinence, nocturia, hematuria, dysuria, foul smelling urine, changes to urinary stream, flank pain, fever, and or chills. She is happy with her current voiding parameters. She does however report utilizing adult pull- ups. We did discuss incontinence however during today's office visit she is adamant she has no bothersome urinary issues or concerns. In office urinalysis results reviewed with the patient today. PVR 93ml's. Urinary Symptoms Review - Patient reports no current issues with urinary incontinence. - Uses briefs but reports no frequent accidents. Discussion Notes I discussed with the patient that if she does not feel she has urinary issues, there is no need for further intervention at this time. We talked about the possibility of transitioning back to regular underwear if she is not experiencing accidents. Follow-up was suggested in a year unless symptoms change, in which case she should contact us sooner. 1. Urinary Incontinence The patient was evaluated for urinary incontinence but reports no current issues. She uses briefs but does not experience frequent accidents, indicating that the condition may not be active. Recommendation was made to transition back to regular underwear if no accidents occur. Follow-up is advised in a year, with earlier consultation if symptoms arise. Patient Instructions - Consider switching back to regular underwear if no accidents occur. - Schedule a follow-up appointment in one year. - Contact the clinic sooner if urinary symptoms develop. [facility] Medical History Alcoholism Alcoholic dementia Family History (Updated 06/02/25 @ 09:27 by Andrade Carpenter [facility]) Father COPD (chronic obstructive pulmonary disease) Mother Hypertension Angina at rest Social History Patient Tobacco Use Status: Never used Tobacco Review of Systems Const All systems reviewed & are unremarkable except as noted in HPI and below Physical Exam Const General: cooperative, comfortable, no acute distress, well developed, alert and awake Nutritional Appearance: thin Orientation/consciousness: patient oriented x3 Limitations: wheelchair HEENT Head: Yes normal to inspection, Yes normocephalic and Yes atraumatic Ears: hearing grossly normal bilaterally Eyes General: appearance normal, both eyes and all related structures Neck Neck: Yes normal visual inspection and Yes trachea midline Chest Chest palpation & inspection: normal inspection of the chest Resp Effort & Inspection: normal respiratory effort and able to speak in complete sentences Cardio Rate: regular rate GI Inspection: Yes normal to inspection General: Yes no CVA tenderness Back/Spine/Pelvis Back: no CVA tenderness Skin General skin exam: no rashes or lesions noted Neuro General: patient oriented x3 Extrem General: Yes normal to inspection Psych Appearance: grossly normal and well kempt Mental Status: mental status grossly normal Speech and movement: Normal speech and movement present and Clear speech present Affect: normal affect Attitude: cooperative Thought process: Normal thought process present Thought content: Normal thought content present Insight: Fair insight present (Psych) Judgement: Fair judgement present (Psych) Office Procedures Post Void Residual Post Residual Void Post Void Residual (PVR): 93 [id number]-Pfme Void Residual by ultrasound Results AMB Urinalysis, Automated UA Leukoctes 0 Dung/uL Last Edit by HANS Flores on 08/27/25 11:38 UA Nitrite Last Edit by HANS Flores on 08/27/25 11:38 UA Urobilinogen 0.2 mg/dL Last Edit by HANS Flores on 08/27/25 11:3 8 UA Protein 0 mg/dL Last Edit by HANS Flores on 08/27/25 11:38 UA pH 6.0 Last Edit by HANS Flores on 08/27/25 11:38 UA Blood 0 Juan C/uL Last Edit by HANS Florse on 08/27/25 11:38 UA Specific [place] 1.010 Last Edit by HANS Flores on 08/27/25 11: 38 UA Ketone Last Edit by HANS Flores on 08/27/25 11:38 UA Bilirubin 0 mg/dL Last Edit by HANS Flores on 08/27/25 11:38 UA Glucose 0 mg/dL Last Edit by HANS Flores on 08/27/25 11:38 Results Reviewed Results Reviewed: Laboratory Last Values Urine pH (Auto) 6.0 08/27/25 11:37 Specific [place] (Auto) 1.010 08/27/25 11:37 Urine Protein (Auto) 0 mg/dL 08/27/25 11:37 Glucose (UA)(Auto) 0 mg/dL 08/27/25 11:37 Urine Blood (Auto) 0 Juan C/uL 08/27/25 11:37 Urine Bilirubin (Auto) 0 mg/dL 08/27/25 11:37 Urine Urobilinogen (Auto) 0.2 mg/dL 08/27/25 11:37 Leukocyte Esterase (Auto) 0 Dung/uL 08/27/25 11:37 Assessment & Plan Assessment & Plan (1) Incontinence: Code(s): R32 - Unspecified urinary incontinence Category: Medical Plan In office urinalysis results with the patient today; as noted above. PVR 93 mL. We discussed the proper use of incontinent pads. We discuss transitioning back to unaware as patient denies any bothersome urinary issues or concerns. All questions were answered. Follow-up in 1 year with PVR; or sooner with any issues, concerns, and or questions. Orders: Orders AMB Post Void Residual by ultrasound Today R32 - Unspecified urinary incontinence AMB Urinalysis Automated Today Z13.9 - Encounter for screening, unspecified Patient Instructions: The patient had an opportunity to ask questions regarding the treatment plan. All questions were answered. Physical exam, labs, and imaging were discussed and reviewed in detail. As well as risks, benefits, and discussion of treatment choices. No major barriers to understanding were identified. The patient expressed understanding and agreement with the above treatment plan. The patient was made aware they should contact our office by phone for worsening of their current condition, the appearance of new symptoms, or with any questions or concerns. Compliance is encouraged with any medications and follow up testing that is ordered. It is a privilege to be allowed the opportunity to participate in? your urological care.? Again, if you have any questions or concerns If you have any questions or concerns please do not hesitate to contact me. The office is [phone]. This note is constructed using voice recognition software. While every effort has been made to ensure accuracy payer specialist errors may have been included. Yours sincerely, LAISHA Worley-MITESH Coding Level of Care Code New Pt Level 3 (41600) Diagnoses Incontinence R32 CPT Codes Post Residual Void - PVR CPT Code: 63934-Oqpw Void Residual by ultrasound ([id number])
== END 2025-08-27 11:50 | disposition home or self-care (01) ==
LOC: HO.HUSH 10:57
PROVIDERS: PCP Family Medicine; Visit Provider Nurse Practitioner Family
DX: R32 Unspecified urinary incontinence (principal); Z13.9 Encounter for screening, unspecified
CPT/HCPCS: 99203

== ENCOUNTER → 2025-08-27 10:57 | Outpatient (BNVA) | payer MEDICARE, MEDICAID, SELFPAY | PROVIDERS: PCP Family Medicine; Visit Provider Nurse Practitioner Family | DX: R32 Unspecified urinary incontinence (principal); Z13.9 Encounter for screening, unspecified | CPT/HCPCS: 51798; 81003; 99202 ==